=== PATIENT | female | born 1940 | race Caucasian/White ===

== ENCOUNTER 2020-11-01 11:56 | Outpatient (REF) | payer MEDICARE, SELFPAY | END 2020-11-01 11:57 | disposition home or self-care (01) | LOC: HO.LAB 11:56 | PROVIDERS: Visit Provider Internal Medicine | DX: Z20.828 Contact with and (suspected) exposure to other viral communicable diseases (principal) | CPT/HCPCS: C9803; U0003 ==

== ENCOUNTER 2022-01-03 14:00 | Emergency (ER) | payer MEDICARE, SELFPAY ==
--- NOTE | ~2022-01-03 | XR_ITS ---
EXAMINATION: XR HAND AND WRIST, RIGHT CLINICAL INFORMATION: Status post fall. Pain in the right hand and right wrist. COMPARISON: None TECHNIQUE: PA, lateral and oblique views including the right hand and right wrist are obtained with an ulnar deviation view of the right wrist. FINDINGS: There is diffuse osseous demineralization in the hand and wrist. There is no evidence of acute fracture or dislocation. Bones are in normal alignment. Degenerative changes are noted at the radiocarpal joint. Calcifications are noted in the expected location of the lunotriquetral and scapholunate ligaments. Mild degenerative changes in the interphalangeal joints. No definite focal erosion is seen. No evidence of radiopaque foreign body or soft tissue air. XR/XR hand wrist RT IMPRESSION: No radiographic evidence of acute fracture or dislocation in the right wrist and right hand at this time. Osteopenia.
[2022-01-03 14:07] VITALS: BP 137/53; PULSE 59; RESP 18; TEMP 36.8; O2SAT 98; BMI 31.1
--- NOTE | 2022-01-03 14:22 | ED_ITS ---
HPI - Extremity Problem General Chief complaint: Extremity Injury, Upper Stated complaint: fall hand inj Time Seen by Provider: 01/03/22 14:15 Source: patient and family Mode of arrival: wheelchair Limitations: altered mental status History of Present Illness HPI Narrative: 81-year-old female with a history of dementia here with reports of right hand and wrist pain after a fall yesterday. Per the daughter the patient was with her son when she slipped and fell catching herself with her right wrist. She initially did not complain of any pain but this morning when she woke up she was reporting some pain to the right hand and wrist as well as some swelling. There was no head strike or loss of consciousness. The patient is not on any anticoagulation. She is right handed Related Data Allergies Allergy/AdvReac Type Severity Reaction Status Date / Time Penicillins Allergy Unknown RASH Unverified 08/15/20 15:56 [PENICILLINS] Penicillian Allergy Unknown Uncoded 03/23/13 00:00 Review of Systems Verdana 4l Review of Systems: Yes Unobtainable due to mental status Verdana 4d Verdana 4l Neurologic: Verdana 4d Denies Abnormal speech present and Reports confusion Verdana 4l Psychiatric: Verdana 4d Verdana 4d Psychiatric: Verdana 4d Reports confusion [facility] Past Medical History Attestation statement: The following information was validated with the patient. Source: old records reviewed and nursing notes reviewed Social History Social History Advance Directives: Yes Advance Directives Information Provided: No Advance Directives on File: No Physical Exam Verdana 4l Vital Signs: Verdana 4d Verdana 4d Vital Signs: Verdana 4d Verdana 4Bd Last Vital Signs Verdana 4d Manager Physical New 4d Manager Physical New 4d Temp 98.2 F 01/03/22 14:07 Manager Physical New 4d Pulse 59 01/03/22 14:07 Manager Physical New 4d Resp 18 01/03/22 14:07 BP 137/53 L 01/03/22 14:07 Pulse Ox 98 01/03/22 14:07 BMI result Body Mass Index 31.1 Const: General: comfortable, alert and confusion Orientation/consciousness: confusion Limitations: altered mental status HENMT: Head: Yes normal to inspection Ears: hearing grossly normal bilaterally General nose exam: Normal external nose present Face and sinus: Yes normal facial exam Mouth: Normal oral and palatal mucosa present Throat: Yes posterior oropharynx normal Eyes: General: appearance normal, both eyes and all related structures Pupils: Equal, round and reactive pupils present Neck: Neck: Yes normal visual inspection Chest: Chest palpation & inspection: normal inspection of the chest Resp: Effort & Inspection: normal respiratory effort Auscultation: clear to auscultation bilaterally Cardio: Rate: regular rate Rhythm: regular rhythm Peripheral pulses: Peripheral pulses 2+ throughout GI: Inspection: Yes normal to inspection Palpation (GI): Soft to palpation and nontender Auscultation: normal bowel sounds Back/Spine/Pelvis: Thoracic/Lumbar Spine: thoracic and lumbar spine normal to inspection Skin: General skin exam: no rashes or lesions noted Neuro: General: no focal motor deficits, normal sensation to monofilament and confusion Cranial nerves: Yes Equal, round and reactive pupils present Cognition (Neuro): normal cognition Speech: No Abnormal speech present Gait exam (Neuro): Normal gait present Motor exam (neuro): 5/5 motor strength present throughout Extrem: Other: There is swelling, slight warmth and redness to the dorsal aspect of the right wrist with limited range of motion due to pain. Neurovascularly intact distally to this No snuffbox tenderness General: Yes normal to inspection Course Course Course Narrative: 81-year-old female with history of dementia here with right hand and wrist pain and swelling after a mechanical fall yesterday Will check x-rays 1615-x-ray showed no acute finding. Likely sprain. Will place and wrist spl int. Reviewed worrisome signs and symptoms of when to return to the emergency department. Comfortable discharge home. MDM - Extremity (Nontraumatic) Medical Records Attestation: I reviewed the patient's medical records. Lab Data Attestation: I reviewed the patient's lab results. Imaging Data hand/wrist xray: Attestation: I personally reviewed and interpreted this imaging study as follows: Radiologist's impression: FINDINGS: There is diffuse osseous demineralization in the hand and wrist. There is no evidence of acute fracture or dislocation. Bones are in normal alignment. Degenerative changes are noted at the radiocarpal joint. Calcifications are noted in the expected location of the lunotriquetral and scapholunate ligaments. Mild degenerative changes in the interphalangeal joints. No definite focal erosion is seen. No evidence of radiopaque foreign body or soft tissue air. XR/XR hand wrist RT IMPRESSION: No radiographic evidence of acute fracture or dislocation in the right wrist and right hand at this time. Osteopenia.? Procedures Procedure Narrative Procedure Narrative: wrist splint Discharge Plan Discharge Clinical Impression: Sprain and strain of wrist Patient Disposition: Home, Self-Care Instructions: Wrist Sprain (ED), Cold Compress or Soak (ED) Additional Instructions: Use splint for comfort Ice and elevate Follow-up with the doctor next week for persistent symptoms Tylenol for pain as needed Referrals: Nabeel Elizabeth MD [Primary Care Provider] - 1 week Interventions: ED Discharge Assessment Last Done: 01/03/22 15:59 Discharge Date/Time: 01/03/22 15:59 Print Language: Afghan
[2022-01-03] MEDS: Acetaminophen 325 MG TABLET 975 MG PO (14:42)
== END 2022-01-03 15:59 | disposition home or self-care (01) ==
PROVIDERS: Emergency Provider Emergency Medicine; PCP Internal Medicine
DX: S63.501A Unspecified sprain of right wrist, initial encounter (principal); X50.1XXA Overexertion from prolonged static or awkward postures, initial encounter; F03.90 Unspecified dementia, unspecified severity, without behavioral disturbance, psychotic disturbance, mood disturbance, and anxiety; Y93.89 Activity, other specified; Y92.039 Unspecified place in apartment as the place of occurrence of the external cause; Y99.9 Unspecified external cause status
CPT/HCPCS: 73110; 73130; 99283; 99284

== ENCOUNTER 2023-07-05 14:50 | Outpatient (REF) | payer MEDICARE, SELFPAY ==
[2023-07-05 17:05] LABS: Alanine Aminotransferase 15 U/L (0-31); Albumin Level 3.9 g/dL (3.5-5.0); Alkaline Phosphatase 52 U/L (39-117); Aspartate Amino Transferase 17 U/L (5-31); Bilirubin Direct 0.1 mg/dL (0.0-0.5); Bilirubin Total 0.3 mg/dL (0.0-1.0); Total Protein 6.7 g/dL (6.5-8.0)
[2023-07-05 17:11] LABS: Anion Gap 11 (12-20); Blood Urea Nitrogen 13 mg/dL (9-16); Calcium 9.6 mg/dL (8.4-10.2); Carbon Dioxide 30 mmol/L (22-29); Chloride 99 mmol/L (96-108); Cholesterol 137 mg/dL; Estimated Glomerular Filt Rate > 60; Glucose Random 123 mg/dL (60-115); HDL Cholesterol 52 mg/dL; LDL Cholesterol Calculated 56 mg/dl; Potassium 4.1 mmol/L (3.3-5.1); Sodium 136 mmol/L (135-145); Triglycerides 147 mg/dL
[2023-07-05 17:22] LABS: TSH reflex Free T4 2.75 uIU/mL (0.32-4.0)
== END 2023-07-05 14:51 | disposition home or self-care (01) ==
LOC: HO.HHCL 14:50
PROVIDERS: Visit Provider Internal Medicine
DX: Z00.00 Encounter for general adult medical examination without abnormal findings (principal); E11.9 Type 2 diabetes mellitus without complications
CPT/HCPCS: 36415; 80048; 80061; 80076; 82043; 84443

== ENCOUNTER 2024-07-18 13:46 | Outpatient (REF) | payer MEDICARE, SELFPAY ==
--- NOTE | ~2024-07-18 | MM_ITS ---
EXAMINATION: MM SCREENING DIGITAL BREAST TOMOSYNTHESIS, BILATERAL CLINICAL INFORMATION: Screening. Asymptomatic. COMPARISON: Mammography: This study is compared with prior exams dating back to 2017. TECHNIQUE: Digital breast tomosynthesis is performed in both the craniocaudal and mediolateral oblique views along with computer-aided detection (CAD). Synthesized 2D images are generated from the tomosynthesis. FINDINGS: There are scattered areas of fibroglandular density (ACR BI-RADS breast composition Category b). There are no significant masses, abnormal calcifications, or other abnormalities. There are bilateral, benign secretory calcifications. MM/MM tomosynthesis screening BI IMPRESSION: No mammographic evidence of malignancy. ASSESSMENT: BI-RADS BI-RADS 2 - Benign Findings RECOMMENDATION: Routine annual mammography screening. 1 year F/U This examination should not preclude the clinical evaluation of a suspicious palpable abnormality. This patient's information was entered into a reminder system with a target due date for their next mammogram. Electronically signed by: Cristy Peralta MD 08/10/2024 04:52 PM EDT
== END 2024-07-18 13:47 | disposition home or self-care (01) ==
LOC: HO.MAMMO 13:46
PROVIDERS: PCP Internal Medicine; Visit Provider Internal Medicine
DX: Z12.31 Encounter for screening mammogram for malignant neoplasm of breast (principal)
CPT/HCPCS: 77063; 77067

== ENCOUNTER → 2024-07-18 14:00 | Outpatient (BNV) | payer MEDICARE, SELFPAY | PROVIDERS: PCP Internal Medicine; Visit Provider Radiology Diagnostic Radiology | DX: Z12.31 Encounter for screening mammogram for malignant neoplasm of breast (principal) | CPT/HCPCS: 77063; 77067 ==

== ENCOUNTER 2024-08-30 11:03 | Outpatient (REF) | payer MEDICARE, SELFPAY ==
[2024-08-30 13:46] LABS: Appearance Urine Cloudy; Color Urine Yellow; Glucose Urine UA Negative (Negative); Leukocyte Esterase Urine Small (1+) (Negative); Nitrite Urine Negative (Negative); PH 6.5 (5.0-9.0); UMIC TRIGGER UACC YES; Urine Blood Negative (Negative); Urine Ketones Negative (Negative); Urine Protein Negative (Neg-Trace)
[2024-08-30 14:23] LABS: Bacteria Urine 3+ (None Seen); Hyaline Casts Urine 0-2 /LPF (0-2); RBC Urine 0-2 /HPF (0-2); UACC Culture Trigger YES
[2024-08-30 14:27] LABS: Alanine Aminotransferase 14 U/L (0-31); Albumin Level 4.1 g/dL (3.5-5.0); Alkaline Phosphatase 51 U/L (39-117); Anion Gap 15 (12-20); Aspartate Amino Transferase 24 U/L (5-31); Bilirubin Total 0.4 mg/dL (0.0-1.0); Blood Urea Nitrogen 10 mg/dL (9-16); Calcium 9.3 mg/dL (8.4-10.2); Carbon Dioxide 23 mmol/L (22-29); Chloride 102 mmol/L (96-108); Cholesterol 124 mg/dL (<200); Estimated Glomerular Filt Rate 55; Glucose Random 141 mg/dL (60-115); HDL Cholesterol 43 mg/dL (>40); LDL Cholesterol Calculated 47 mg/dL (<100); Sodium 136 mmol/L (135-145); Total Protein 7.1 g/dL (6.5-8.0); Triglycerides 172 mg/dL (<150)
== END 2024-08-30 11:04 | disposition home or self-care (01) ==
LOC: HO.HHCL 11:03
PROVIDERS: Visit Provider Internal Medicine
DX: E11.9 Type 2 diabetes mellitus without complications (principal); M54.50 Low back pain, unspecified; G89.29 Other chronic pain; R82.90 Unspecified abnormal findings in urine
CPT/HCPCS: 36415; 80053; 80061; 81001; 87086

== ENCOUNTER 2025-04-17 13:12 | Outpatient (REF) | payer OTHER, SELFPAY ==
--- NOTE | ~2025-04-17 | MM_ITS ---
EXAMINATION: DXA BONE DENSITY AXIAL HISTORY: osteopenia TECHNIQUE: Cardica Dual energy absorptiometry (DEXA) of the lumbar spine, total left hip, and femoral neck was performed. COMPARISON: Comparison is made with the prior examination dated 01/29/2015. FINDINGS: The bone mineral density of the lumbar spine is 1.040 with a T-score of -1.0, and a Z-score of 1.1. This is indicative of normal bone mineral density. This represents a BMD change of 2.2% compared to the prior exam. This is not statistically significant. The bone mineral density of the left total hip is 0.912 with a T-score of -0.8, and a Z-score of 1.7. This is indicative of normal bone mineral density. This represents a BMD change of -6.8% compared to the prior exam. This is statistically significant. The bone mineral density of the left femoral neck is 0.939 with a T-score of -0.7, and a Z-score of 1.9. This is indicative of normal bone mineral density. This represents a BMD change of -5.8% compared to the prior exam. FRACTURE RISK: The FRAX index suggests a ten year probability of major osteoporotic fracture of 6.3%, and of hip fracture 1.4%. MM/XR DEXA axial skeleton IMPRESSION: Based on bone mineral density, and according to World Health Organization (WHO) criteria, the diagnosis is consistent with normal bone mineral density. All bone density values are in grams per centimeter squared (g/cm2). Statistically, 68% of repeat scans fall within 1 SD (+/- 0.010 g/cm2 for AP spine L1-L4) and 1 SD (+/- 0.012 g/cm2 for femur total) FRAX is a trademark of the [employer] Met[employer], a World Health Organization (WHO) Collaborating Center. Electronically signed by: Damon Rome MD 04/17/2025 03:16 PM EDT
--- OUTSIDE RECORDS SUMMARY | 2025-04-17 14:17 | XMS_ITS | Clinical Summary ---
Author Organization [employer] Address [address] [place] [address] Care Team Providers Care Lines Tender Name Role Phone Nabeel Aldana MD Primary Care Provide r Santi Arellano DPM Unavailable [phone] Allergies Active Allergy Reactions Criticality Noted Date Comments Penicillins Other reaction(s): unspecified, unspecified Medications memantine (Namenda) 10 MG tablet take 1 tablet by oral route twice daily in the morning and at bedtime. 2 Active Emollient (CeraVe Moisturizing) cream use once daily 2 Active donepezil (Aricept) 10 MG tablet take 1 tablet by oral route every day at bedtime 2 Active primidone (Mysoline) 50 MG tablet take 0.5 tablet (25 mg) by mouth twice daily in the morning and at bedtime 1 Active haloperidol (Haldol) 0.5 MG tablet Take 1 tablet by mouth every 12 (twelve) hours. Active olopatadine (Patanol) 0.1 % ophthalmic solution PLACE 1 DROP INTO THE AFFECTED EYE(S) EVERY 6 TO 8 HOURS, TWICE DAILY, FOR ALLERGIES 5 mL 1 3 Active fluticasone (Flonase) 50 MCG/ACT nasal spray INHALE 1 SPRAY IN EACH NOSTRIL ONCE DAILY 16 g 5 4 Active Diclofenac Sodium 1 % gelIndications:Ch ronic midline low back pain without sciatica Apply to affected joint twice daily PRN 50 g 1 5 Active amLODIPine (Norvasc) 2.5 MG tabletIndications :Type 2 diabetes mellitus without complication, unspecified whether senior living insulin use ([facility]) TAKE 1 TABLET BY MOUTH EVERY MORNING 90 tablet 1 5 Active atenolol (Tenormin) 25 MG tablet TAKE 1/2 TABLET BY MOUTH EVERY MORNING 45 tablet 5 Active atorvastatin (Lipitor) 40 MG tabletIndications :Type 2 diabetes mellitus without complication, unspecified whether assistant terminal manager insulin use ([facility]) TAKE 1 TABLET BY MOUTH AT BEDTIME 90 tablet 1 5 Active cetirizine (ZyrTEC) 10 MG tabletIndications :Essential hypertension TAKE 1 TABLET BY MOUTH EVERY MORNING 90 tablet 1 5 Active gabapentin (Neurontin) 100 MG capsuleIndication s:Chronic midline low back pain without sciatica TAKE 1 CAPSULE BY MOUTH AT BEDTIME 30 capsule 5 5 Active hydroCHLOROthiazi de 12.5 MG tabletIndications :Type 2 diabetes mellitus without complication, unspecified whether senior living insulin use ([facility]) TAKE 1 TABLET BY MOUTH EVERY MORNING 90 tablet 1 5 Active losartan (Cozaar) 100 MG tabletIndications :Type 2 diabetes mellitus without complication, unspecified whether assistant terminal manager insulin use ([facility]) TAKE 1 TABLET BY MOUTH EVERY MORNING 90 tablet 5 Active metFORMIN XR (Glucophage-XR) 500 MG 24 hr tabletIndications :Type 2 diabetes mellitus without complication, unspecified whether assistant terminal manager insulin use ([facility]) TAKE 1 TABLET BY MOUTH EVERY MORNING WITH BREAKFAST 90 tablet 5 Active cholecalciferol (Vitamin D-3) 125 MCG (5000 UT) tabletIndications :Low vitamin D level TAKE 1 TABLET BY MOUTH EVERY MORNING 90 tablet 5 Active Oyster Shell Calcium 500 MG tabletIndications :Chronic midline low back pain without sciatica TAKE 1 TABLET BY MOUTH EVERY MORNING 90 tablet 1 5 Active acetaminophen (Tylenol 8 Hour) 650 MG ER tabletIndications :Chronic midline low back pain without sciatica Take 1 tablet (650 mg) by mouth every 8 (eight) hours if needed for mild pain. Do not crush, chew, or split. 30 tablet 5 04/02/20 25 Active Problems Problem Noted Date Diagnosed Date Poor appetite 02/01/2025 Assessment & Plan (02/01/2025 12:04 PM EST): Pt recommended to try Glucerna TID Preventative health care 08/29/2024 Assessment & Plan (08/29/2024 3:37 PM EDT): Mammogram: NL 06/17/2023 Normal Pap Smear: NL: 07/13/2006 Given age no need to continue Colonoscopy: 01/04/2014 Dr. Mejía 10 year f/u 2023, Discussed today with her HCP her daughter who will discuss with her brother and let me know. I explained to her that we usually stopped screening for colorectal CA at age 84 Dexa scan: 01/29/2015 NL, will repeat Skin lesion of face 08/29/2024 Assessment & Plan (08/29/2024 10:29 AM EDT): Pt treated for this by Dr Zhou, lesion on her left cheek growing, would like to be re-evaluated again Moderate dementia with agitation 10/30/2022 Assessment & Plan (02/01/2025 11:48 AM EST): Pt here for a follow up Remains stable per family member Pt is being followed by Neurology, last note on record 05/2023 She is on: Namenda 10 mg po BID and Aricept 10 mg po daily Haldol 0.5 1 tab q 12 hrs. And Primidone 50 mg po BID prescribed by Neurologist She lives with her son She will continue following with Neurology Ct of brain was negative, EEG was negative She has a [employer]TA[employer] at home. f/u 3 months Assessment & Plan (08/29/2024 10:06 AM EDT): Pt here for a follow up Remains stable per family member Pt is being followed by Neurology, last note on record 05/2023 She is on: Namenda 10 mg po BID and Aricept 10 mg po daily Haldol 0.5 1 tab q 12 hrs. And Primidone 50 mg po BID prescribed by Neurologist She lives with her son She will continue following with Neurology Ct of brain was negative, EEG was negative She has a [employer] at home. f/u 3 months Assessment & Plan (07/08/2023 3:35 PM EDT): Pt stable per daughter Pt is being followed by Neurology, last seen 05/2023 She is on: Namenda 10 mg po BID and Aricept 10 mg po daily Haldol 0.5 1 tab q 12 hrs. And Primidone 50 mg po BID prescribed by Neurologist She now lives with her son She will continue following with Neurology Ct of brain was negative, EEG was negative She has a [employer] at home. 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 patient advised to adhere to a low sodium diet, encouraged about medication compliance, counseled about weight loss. Assessment & Plan (08/29/2024 10:07 AM EDT): Pt is here for a follow up BP controlled She is on a regimen of: Atenolol 12.5 mg po daily (lowered due to bradycardia) , losartan/Hctz 100/12.5 mg po daily and Norvasc 2.5 mg po daily She is off Lasix Most recent electrolytes, Bun and Creatinine done on: 07/05/2023 were wnl. Will repeat patient advised to adhere to a low sodium diet, encouraged about medication compliance, counseled about weight loss. Assessment & Plan (07/08/2023 3:23 PM EDT): Pt is here for a follow up BP controlled She is on a regimen of: Atenolol 12.5 mg po daily (lowered due to bradycardia) , losartan/Hctz 100/12.5 mg po daily and Norvasc 2.5 mg po daily She is off Lasix Most recent electrolytes, Bun and Creatinine done on: 04/06/2022 were wnl. Will repeat patient advised to adhere to a low sodium diet, encouraged about medication compliance, counseled about weight loss. Assessment & Plan (04/13/2023 12:48 PM EDT): Televisit BP controlled She is on a regimen of: Atenolol 12.55 mg po daily (lowered due to bradycardia) , losartan/Hctz 100/12.5 mg po daily and Norvasc 2.5 mg po daily She is off Lasix Most recent electrolytes, Bun and Creatinine done on: 04/06/2022 were wnl. Will repeat patient advised to adhere to a low sodium diet, encouraged about medication compliance, counseled about weight loss. Non-rheumatic tricuspid valve insufficiency 08/30 Tricuspid valve regurgitation 06/18/2015 Assessment & Plan (08/29/2024 10:08 AM EDT): last ECHO from [facility] done on 09/09/2016 showed moderate to severe Tricuspid regurgitation unchanged from previous. Assessment & Plan (07/08/2023 3:36 PM EDT): Most recent ECHO from [facility] done on 09/09/2016 showed moderate to severe Tricuspid regurgitation unchanged from previous. Chronic low back pain 09/19/2012 Assessment & Plan (02/01/2025 12:02 PM EST): Pt tamika Has a Hx of chronic low back pain, treated in the past by a local doper operator Dr Wren with epidural injections with good results.. MRI done at [facility] 10/27/2009 showed a complex disc bulge at the level of L4-L5 which I suspected was causing her symptoms. In the past she was seen at [facility] and last visit she told me she wanted to go back for consideration of epidural injections. She was seen on 12/05/2012 and given an epidural injections with excellent results. She had been under the care of Dr. Marquez who had prescribed Tramadol and gabapentin. Pt no longer sees Dr. Marquez. No longer taking Tramadol since 2022 per [facility] Plan; Start Tylenol arthritis and Diclofenac Last visit we requested a positioning bed Assessment & Plan (08/29/2024 10:09 AM EDT): Pt tamika Has a Hx of chronic low back pain, treated in the past by a local doper operator Dr Wren with epidural injections with good results.. MRI done at [facility] 10/27/2009 showed a complex disc bulge at the level of L4-L5 which I suspected was causing her symptoms. In the past she was seen at [facility] and last visit she told me she wanted to go back for consideration of epidural injections. She was seen on 12/05/2012 and given an epidural injections with excellent results. she continues on Tramadol and gabapentin. Last visit we requested a positioning bed Assessment & Plan (07/08/2023 3:38 PM EDT): Pt with chronic low back pain, treated in the past by a local doper operator Dr Wren with epidural injections with good results.. MRI done at [facility] 10/27/2009 showed a complex disc bulge at the level of L4-L5 which I suspected was causing her symptoms. In the past she was seen at [facility] and last visit she told me she wanted to go back for consideration of epidural injections. She was seen on 12/05/2012 and given an epidural injections with excellent results. she continues on Tramadol and gabapentin. 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 Foot check risk of zero Pt is on ASA Pt advised to: adhere to diabetic diet check your blood sugars regularly check your feet on a daily basis. 4 month follow up Assessment & Plan (08/29/2024 10:09 AM EDT): Patient is here for a routine follow up DM controlled She is on a regimen of: Metformin 500 mg po QD Hgb A1c 08/29/2024 was 6.8 Eye exam was last done by the Dr Niño 12/31/2015 Microalbumin checked on: 01/14/2021 was: 0.4 Pt is on ARB. Foot check risk of zero Pt is on ASA Pt advised to: adhere to diabetic diet check your blood sugars regularly check your feet on a daily basis. 4 month follow up Assessment & Plan (07/08/2023 3:25 PM EDT): Patient is here for a routine follow up DM controlled She is on a regimen of: Metformin 500 mg po QD Hgb A1c 07/08/2023 was 6.3 Eye exam was last done by the Dr Niño 12/31/2015 Microalbumin checked on: 01/14/2021 was: 0.4 Pt is on ARB. Foot check risk of zero Pt is on ASA Pt advised to: adhere to diabetic diet check your blood sugars regularly check your feet on a daily basis. 4 month follow up Assessment & Plan (04/13/2023 12:50 PM EDT): Televisit DM controlled per son's report over the phone She is on a regimen of: Metformin 500 mg po QD Hgb A1c 09/01/2022 was 6.2. Will repeat Eye exam was last done by the Dr Niño 12/31/2015 Microalbumin checked on: 01/14/2021 was: 0.4 Pt is on ARB. Foot check risk of zero Pt is on ASA Pt advised to: adhere to diabetic diet check your blood sugars regularly check your feet on a daily basis. 3 month follow up in person Osteoarthritis 11/29/1959 Resolved Problems Problem Noted Date Diagnosed Date Resolved Date Cataract associated with typ e 2 diabetes mellitus 07/28/2018 11/03/2024 Encounters Date Type Department Care Team Description 03/09/2025 Telephone [facility] [address] [place] [address] Nabeel Aldana MD Durable Medical Equipment 03/01/2025 Refill [facility] [address] [place] [address] Nabeel Aldana MD Chronic midline low back pain without sciatica 02/07/2025 Telephone [facility] [address] [place], [place] [phone] Nabeel Aldana MD DME CCA 02/04/2025 Refill [facility] [address] [place], [place] [phone] Nabeel Aldana MD Type 2 diabetes mellitus without complication, unspecified whether assistant terminal manager insulin use (CMS/HCC); Essential hypertension; Chronic midline low back pain without sciatica; Low vitamin D level 02/01/2025 11:30 AM EST Office Visit [facility] [address] [place], [place] [phone] Nabeel Aldana MD Essential hypertension (Primary Dx); Type 2 diabetes mellitus without complication, without long-term current use of insulin (CMS/HCC); Moderate dementia with agitation, unspecified dementia type (CMS/HCC); Chronic midline low back pain without sciatica; Poor appetite 02/01/2025 Travel 01/18/2025 Telephone [facility] [address] [place], [place] [phone] Nabeel Aldana MD Chart Prep from Last 3 Months Immunizations Immunization Administration Dates Next Due Influenza High-dose Quadriva lent Preservative Free 09/01/2022,09/02/2021,08/27/2020 Influenza injectable quadriv alent IIV4 with preservative 09/15/2016 Influenza injectable quadriv alent preservative free 09/02/2015 Influenza, High Dose Seasona l, Preservative Free 08/29/2024,10/11/2018,11/18/2016 Influenza, IIV3, injectable 08/09/2014,1 ,08/07/2010,12/09 Influenza, Split (incl. anabell fied surface antigen) 08/28/2013,09/19/2012 Influenza, trivalent, adjuvanted 08/10/2019 Pfizer Covid-19 Vaccine 12+ 08/29/2024,0 08/28/2021,01/04/2021,12/14 Pfizer Covid-19 Vaccine 12+ Bivalent 09/01/2022 Pneumococcal Conjugate PCV 13 11/26/2015 Pneumococcal Conjugate PCV 7 04/03/2011 Pneumococcal Polysaccharide PPSV23 01/19/2014 TD (adult), 2 Lf tetanus tox oid, preservative free, adsorbed 01/08/2015,10/04/1997 Tdap 09/01/2022 Zoster, live 01/19/2014 Social History Tobacco Use Types Packs/Day Years Used Date Smoking Tobacco: Never Passive Smoke Exposure: Never Smokeless Tobacco: Never Tobacco Cessation:Counseling Given: Not Answered Depression Answer Date Recorded Patient Health Questionnaire-9 Score 3 08/29/2024 Patient Health Questionnaire-9 Score 3 08/29/2024 Last PHQ-9: Questionnaire Data Not on file 1 Housing Stability Answer Date Recorded What is your housing situation today? I have anishaalexis rueda 09/21/[address] you li ve. Do you have problems with any of the following? None of the above 09/21/2023 Food Insecurity Answer Date Recorded Within the past 12 months, y ou worried that your food would run out before you got money to buy more: Never True 09/21/2023 Within the past 12 months,th e food you bought just didn't last and you didn't have enough money to get more: Never True Transportation Answer Date Recorded In the past 12 months, has l ack of transportation kept you from medical appts, meetings, work or from getting things needed for daily living? No 09/21/2023 Utilities Answer Date Recorded In the past 12 months, has t he electric, gas, oil or water company threatened to shut off services in your home? No 09/21/2023 Depression Answer Date Recorded Patient Health Questionnaire-2 Score 3 08/29/2024 Internet Access Answer Date Recorded Internet Access Q1 Yes 07/28/2024 Internet Access Q2 Not on file 07/28/2024 Comments Unknown Sex and Gender Information Value Date Recorded Sex Assigned at Female 09/28/2022 10:14 AM EDT Legal Sex Female 10:14 AM EDT Gender Identity Female 09/28/2022 10:14 AM EDT Sexual Orientation Straight 09/28/2022 10 :14 AM EDT Last Filed Vital Signs Vital Sign Reading Time Taken Comments Blood Pressure 124/64 02/01/2025 11:46 AM EST Pulse 65 02/01/2025 11:46 AM EST Temperature 36.1 ??C (96.9 ??F) 02/01/2025 11:[address] Respiratory Rate 20 02/01/2025 11:46 AM EST Oxygen Saturation 95% 02/01/2025 11:46 AM EST Inhaled Oxygen Concentration - - Weight 57.2 kg (126 lb 3.2 oz) 02/01/2025 11:46 AM EST Height 149.9 cm (4' 11 ) 02/01/2025 11:46 AM EST Body Mass Index 25.49 02/01/2025 11:46 AM EST Plan of Treatment Upcoming Encounters Date Type Department Care Team (Late st Contact Info) Description 05/08/2025 3:00 PM EDT Office Visit [facility] [address] [place] [address] Nabeel Aldana MD [address] [place] [address] Health Maintenance Due Date Last Done Comments Derm Melanoma Skin Check 1940 Diabetes: Foot Exam 1949 Dental X-Ray: Bitewings 02/07/2011 02/06/2010 Zoster Vaccines (2 of 3) 03/16/2014 01/19/2014 RSV Patients and Patients Aged 60 years or older (1 - 1-dose 75+ series) 2014 Dental Prophylaxis 04/04/2016 10/04/2015, 0 04/02/2015, 02/12/2014, Additional history exists Diabetes: Urine Protein Screening 04/06/2023 04/06/2022, 09/17/2020 Dental Oral Exam 01/19/2025 07/18/2024, , 11/18/2017, Additional history exists COVID-19 Vaccine ( season) 2025 08/29/2024, 09/01/2022, 08/28/2021, Additional history exists SDOH Screening 06/02/2025 06/02/2024 Mammogram 07/18/2025 07/18/2024, 06/17/2023 Diabetes: Hemoglobin A1C 08/04/2025 025, 08/29/2024, 07/08/2023, Additional history exists Depression Screening 08/29/2025 08/29/2024, 08/29/20 24 Lipid Panel 08/30/2025 08/30/2024, 08/0 05/2023, 04/06/2022 Alcohol/Substance Use Screening 02/01/2026 02/01/2025 Tobacco Screening 02/01/2026 02/01/2025 Eye Exam 11/03/2026 11/03/2024, 12/0 04/2024, 11/03/2024, Additional history exists Dental X-Ray: Full Mouth 07/19/2027 024, 11/06/2015, 02/06/2010 DTaP/Tdap/Td Vaccines (2 - Td or Tdap) 09/01/2032 09/01/2022, 01/08/2015, 10/04/1997 Pneumococcal Vaccine: 50+ Years Completed 11/26/2015, 01/19/2014, 04/03/2011 Influenza Vaccine Completed 08/29/2024, , 09/02/2021, Additional history exists HIB Vaccines Aged Out No longer eligi ble based on patient's age to complete this topic HPV Vaccines Aged Out No longer eligi ble based on patient's age to complete this topic Hepatitis A Vaccines Aged Out No long er eligible based on patient's age to complete this topic Hepatitis B Vaccines Aged Out No long er eligible based on patient's age to complete this topic IPV Vaccines Aged Out No longer eligi ble based on patient's age to complete this topic Meningococcal B Vaccine Aged Out No l onger eligible based on patient's age to complete this topic Meningococcal Vaccine Aged Out No liz harjinder eligible based on patient's age to complete this topic RSV under 20 months Aged Out No longe r eligible based on patient's age to complete this topic Rotavirus Vaccines Aged Out No longer eligible based on patient's age to complete this topic Procedures Procedure Name Priority Date/Time Associated Diagnosis Comments POCT GLYCATED HEMOGLOBIN, TOTAL Routine 02/01/2025 11:56 AM EST Type 2 diabetes mellitus without complication, without long-term current use of insulin (CMS/[facility]) POCT GLUCOSE Routine 02/01/2025 11:56 AM EST Type 2 diabetes mellitus without complication, without long-term current use of insulin (CMS/[facility]) LIPID PANEL, STANDARD Routine 08/30/2024 11:09 AM EDT Type 2 diabetes mellitus without complication, without long-term current use of insulin (CMS/[facility]) BI MAMMOGRAM SCREENING TOMOSYNTHESIS BILATERAL Routine 07/18/2024 1:55 PM EDT PANORAMIC RADIOGRAPHIC IMAGE Routine 07/18/2024 11:30 AM EDT PERIODIC ORAL EVALUATION - ESTABLISHED PATIENT Routine 07/18/2024 11:30 AM EDT ALBUMIN, RANDOM URINE W/CREATININE Routine 04/06/2022 10:27 AM EDT PROPHYLAXIS - ADULT Routine 10/04/2015 1 2:00 AM EST INTRAORAL - COMPLETE SERIES OF RADIOGRAPHIC IMAGES Routine 02/06/2010 12:00 AM EST from Last 3 Months or Most Recently Relevant to Health Maintenance Results * (ABNORMAL) POCT HGB A1C (02/01/2025 11:56 AM EST) Hemoglobin A1C 6.7(A) 4.0 - 6.0 % QC Media Lot # [id number] Lot# Expiration Date Blood 02/01/2025 11:5 6 AM EST us Nabeel Coombs MD POINT OF CARE TEST EN TER/EDIT ORDERABLES Final Result * POCT Glucose (02/01/2025 11:56 AM EST) Glucose Blood, POC 182 60 - 200 mg/dL QC Media Lot # [id number] Lot# Expiration Date [id number] Blood Capillary blood specimen / Unknown 02/01/2025 11:56 AM EST Nabeel Coombs MD POINT OF CARE TEST EN TER/EDIT ORDERABLES Final Result * (ABNORMAL) Lipid Panel, Standard (08/30/2024 11:09 AM EDT) Triglycerides 172(H) <150 mg/dL [facility] Comment:Desirable Triglyceri de: less than 150 mg/dLBorderline High Triglyceride 150-199 mg/dLHigh Triglyceride: 200-499 mg/dLVery High Triglyceride: greater than or equal to 5OO mg/dL Cholesterol 124 <200 mg/dL [facility] Comment:Desirable Cholestero l: less than 200 mg/dLBorderline High Cholesterol: 200-239 mg/dLHigh Cholesterol: greater than 239 mg/dL LDL Cholesterol Calculated 47 <100 mg/dL [facility] Comment:Desirable LDL: less than 100 mg/dLNear Optimal/Above Optimal LDL: 110- 129 mg/dLBorderline High LDL: 130-159 mg/dLHigh LDL: 160-189 mg/dLVery High LDL: greater than or equal to 190 mg/dL HDL Cholesterol 43 >40 mg/dL [facility] Comment:Desirable HDL: great er than 40 mg/dL Note: This HDL assay may give artificially low results in patients with liver disease. Blood Venous blood specimen / Unknown 08/30/2024 11:09 AM EDT 08/30/2024 1:43 PM EDT Nabeel Coombs MD LAB BLOOD ORDERABLES Final Result [facility] [address] [place] [phone] * BI Mammogram Screening Tomosynthesis Bilateral (07/18/2024 1:55 PM EDT) Anatomical Region Laterality Modality Breast Bilateral Mammography 07/18/2024 1:55 PM EDT Narrative 08/10/2024 4:55 PM EDT ? [facility] ? [address] ?[place], [place] [address] ? Mammography Report ? Signed ? Patient: Mirian Coulter ?MR#: [id number] ? : 1940 ?Acct:[id number] ? Age/Sex: 84 / F ?ADM Date: 07/18/24 ? Loc: HO.MAMMO ? Attending Dr: Nabeel Elizabeth MD ? Ordering Physician: Nabeel Elizabeth MD ?Resu ?? lts: 2Benign Findings ? Date of Service: 07/18/24 ?Follow Up: 1 Year From Orig ?? inal Mammogram ? Procedure(s): MM tomosynthesis screening BI ?? Accession Number(s): [id number] ? cc: Nabeel Elizabeth MD ? EXAMINATION: ?? MM SCREENING DIGITAL BREAST TOMOSYNTHESIS, BILATERAL ? CLINICAL INFORMATION: ? Screening. Asymptomatic. ? COMPARISON: ?? Mammography: This study is compared with prior exams dating back to ? 2017. ? TECHNIQUE: ?? Digital breast tomosynthesis is performed in both the craniocaudal and ?? mediolateral oblique views along with computer-aided detection (CAD). ? Synthesized 2D images are generated from the tomosynthesis. ? FINDINGS: ?? There are scattered areas of fibroglandular density (ACR BI-RADS breast ?? composition Category b). ? There are no significant masses, abnormal calcifications, or other ?? abnormalities. ?? There are bilateral, benign secretory calcifications. ? MM/MM tomosynthesis screening BI ?? IMPRESSION: ?? No mammographic evidence of malignancy. ? ASSESSMENT: ? BI-RADS BI-RADS 2 - Benign Findings ? RECOMMENDATION: ?? Routine annual mammography screening. ? 1 year F/U ? This examination should not preclude the clinical evaluation of a ?? suspicious palpable abnormality. ? This patient's information was entered into a reminder system with a ?? target due date for their next mammogram. ? Electronically signed by: ??Cristy Peralta MD ??08/10/2024 04:52 PM EDT RP ? Dictated By: ?Cristy Peralta MD ? Signed By: ?<Electronically signed by Cristy Moskos, MD in OV> ? 08/10/24 1652 ? DD/ 1355 ? TD/TT: 07/18/24 1410 ? Biometrics Analyst: ? Procedure Note Jerome, Delta - 08/10/2024 [facility] [address] [place] [address] [place] [address] Mammography Report Signed Patient: Mirian Coulter MR#: [id number] : 9Acct:[id number] Age/Sex: 84 / FADM Date: 07/18/24 Loc: [facility] Attending Dr: Nabeel Elizabeth MD Ordering Physician: Nabeel Elizabeth MDResu lts: 2Benign Findings Date of Service: 07/18/24Follow Up: 1 Year From Orig inal Mammogram Procedure(s): MM tomosynthesis screening BI Accession Number(s): [id number] cc: Nabeel Elizabeth MD EXAMINATION: MM SCREENING DIGITAL BREAST TOMOSYNTHESIS, BILATERAL CLINICAL INFORMATION: Screening. Asymptomatic. COMPARISON: Mammography: This study is compared with prior exams dating back to 2017. TECHNIQUE: Digital breast tomosynthesis is performed in both the craniocaudal and mediolateral oblique views along with computer-aided detection (CAD). Synthesized 2D images are generated from the tomosynthesis. FINDINGS: There are scattered areas of fibroglandular density (ACR BI-RADS breast composition Category b). There are no significant masses, abnormal calcifications, or other abnormalities. There are bilateral, benign secretory calcifications. MM/MM tomosynthesis screening BI IMPRESSION: No mammographic evidence of malignancy. ASSESSMENT: BI-RADS BI-RADS 2 - Benign Findings RECOMMENDATION: Routine annual mammography screening. 1 year F/U This examination should not preclude the clinical evaluation of a suspicious palpable abnormality. This patient's information was entered into a reminder system with a target due date for their next mammogram. Electronically signed by: Cristy Peralta MD 08/10/2024 04:52 PM EDT RP Dictated By: Cristy Peralta MD Signed By: <Electronically signed by Cristy Peralta MD in OV> 08/10/24 1652 DD/ 1355 TD/TT: 07/18/24 1410 Biometrics Analyst: us Nabeel Coombs MD IMG BI PROCEDURES Fin al Result * ALBUMIN, RANDOM URINE W/CREATININE (04/06/2022 10:27 AM EDT) Microalbumin Urine 1.6 See Note: mg/dL [facility] Comment: Reference Range: ?? Reference Range Not established Microalb/Creat Ratio 9 <30 mcg/mg creat [facility] Comment: ?? The ADA defines abnormalities in albumin excretion as follows: ?? Albuminuria Category ?Result (mcg/mg creatinine) ?? Normal to Mildly increased ?? <30 Moderately increased ? 30-299 ?? Severely increased ? > OR = 300 ?? The ADA recommends that at least two of three specimens collected within a 3-6 month period be abnormal before considering a patient to be within a diagnostic category. 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
--- OUTSIDE RECORDS SUMMARY | 2025-04-17 14:17 | XMS_ITS | Encounter Summary ---
Author Organization [email or web address] Address [address] [facility] 7t [place] [address] Care Team Providers Care Racking Machine Operator Name Role Phone Nabeel Aldana MD Primary Care Provide r Santi Arellano DPM Unavailable [phone] Reason for Visit * Reason Onset Date Comments Durable Medical Equipment 07/24/2024 Encounter Details Date Type Department Care Team (Late st Contact Info) Description 07/24/2024 Telephone [facility] MEDICINE [address] [place], [place] [phone] Nabeel Aldana MD [address] [place], [place] [phone] Durable Medical Equipment Social History Tobacco Use Types Packs/Day Years Used Date Smoking Tobacco: Never Passive Smoke Exposure: Never Smokeless Tobacco: Never Depression Answer Date Recorded Patient Health Questionnaire-9 Score 0 07/08/2023 Housing Stability Answer Date Recorded What is your housing situation today? I have anisha marybeth 09/21/[address] you li [...] Answer Date Recorded Patient Health Questionnaire-2 Score 0 07/08/2023 Internet Access Answer Date Recorded Internet Access Q1 Yes 07/28/2024 Internet Access Q2 Not on file 07/28/2024 Comments Unknown Sex and Gender Information Value Date Recorded Sex Assigned at Female 09/28/2022 10:14 AM EDT Legal Sex Female 10:14 AM EDT Gender Identity Female 09/28/2022 10:14 AM EDT Sexual Orientation Straight 09/28/2022 10 :14 AM EDT documented as of this encounter Miscellaneous Notes * Telephone Encounter - Salvatore Pantoja - 07/24/2024 3:20 PM EDT TC from Monisha with [employer] states received form for incontinents supplies but form was not completed. Needs this form redone . [employer] will be re faxing form for completion with notes of what was missing . Please call [employer] can speak with any one at [phone] Reference # [id number] documented in this encounter Plan of Treatment Upcoming Encounters Date Type Department Care Team ([facility] st Contact Info) Description 05/08/2025 3:00 PM EDT Office Visit [facility] MEDICINE [address] [place] [address] Nabeel Aldana MD [address] [place] [address] documented as of this encounter Visit Diagnoses Not on filedocumented in this encounter Additional Health Concerns Assessment Noted Time PHQ-9 Depression Total Score: 0 07/08/20 23 3:11 PM EDT documented as of this encounter Care Teams Racking Machine Operator Relationship Specialty Start Date End Date Nabeel Aldana MD [address] [place] [address] PCP - General Internal Medicine 07/10/14 Santi Arellano DPM [address] [address] Podiatry 02/01/25 documented as of this encounter
--- OUTSIDE RECORDS SUMMARY | 2025-04-17 14:17 | XMS_ITS | Encounter Summary ---
Author Organization [employer] Address [address] [facility] 7t [place] [address] Care Team Providers Care Paper Bag Inspector Name Role Phone Nabeel Aldana MD Primary Care Provide r Santi Arellano DPM Unavailable [phone] Reason for Visit * Reason Onset Date Comments Reschedule 11/24/2023 Encounter Details Date Type Department Care Team (Late st Contact Info) Description 11/24/2023 Telephone [facility] MEDICINE [address] [place], [place] [phone] Nabeel Aldana MD [address] [place], [place] [phone] Reschedule Social History Tobacco Use Types Packs/Day Years Used Date Smoking Tobacco: Never Passive Smoke Exposure: Never Smokeless Tobacco: Never Depression Answer Date Recorded Patient Health Questionnaire-9 Score 0 07/08/2023 Housing Stability Answer Date Recorded What is your housing situation today? I have anisha sing 09/21/[address] you li [...] Recorded Patient Health Questionnaire-2 Score 0 07/08/2023 Comments Unknown Sex and Gender Information Value Date Recorded Sex Assigned at Female 09/28/2022 10:14 AM EDT Legal Sex Female 10:14 AM EDT Gender Identity Female 09/28/2022 10:14 AM EDT Sexual Orientation Straight 09/28/2022 10 :14 AM EDT documented as of this encounter Miscellaneous Notes * Telephone Encounter - Marcia Lomeli - 11/24/2023 9:25 AM EST Tc from [employer] (son) requesting r/s 11/11/2023 OV with PCP, mortgage or loan underwriter attempted to r/s no availability for November. documented in this encounter Plan of Treatment Upcoming Encounters Date Type Department Care Team (Late st Contact Info) Description 05/08/2025 3:00 PM EDT Office Visit [facility] MEDICINE [address] [place] [address] Nabeel Aldana MD [address] [place] [address] documented as of this encounter Visit Diagnoses Not on filedocumented in this encounter Additional Health Concerns Assessment Noted Time PHQ-9 Depression Total Score: 0 07/08/20 23 3:11 PM EDT documented as of this encounter Care Teams Paper Bag Inspector Relationship Specialty Start Date End Date Nabeel Aldana MD [address] [place] [address] PCP - General Internal Medicine 07/10/14 Santi Arellano DPM [address] [place] [phone] Podiatry 02/01/25 documented as of this encounter
--- OUTSIDE RECORDS SUMMARY | 2025-04-17 14:17 | XMS_ITS | Encounter Summary ---
Author Organization [email or web address] Address [address] [facility] 7t [place] [address] Care Team Providers Care Shop Director Name Role Phone Nabeel Aldana MD Primary Care Provide r Santi Arellano DPM Unavailable [phone] Reason for Visit * Reason Comments Med Refill Encounter Details Date Type Department Care Team (Late st Contact Info) Description 09/29/2023 Telephone [facility] MEDICINE [address] [place], [place] [phone] Nabeel Aldana MD [address] [place], [place] [phone] Med Refill Social History Tobacco Use Types Packs/Day Years [...] AM EDT documented as of this encounter Plan of Treatment Upcoming Encounters Date Type Department Care Team (Late st Contact Info) Description 05/08/2025 3:00 PM EDT Office Visit [facility] MEDICINE [address] [place] [address] Nabeel Aldana MD [address] [place] [address] documented as of this encounter Visit Diagnoses Diagnosis Low vitamin D level documented in this encounter Additional Health Concerns Assessment Noted Time PHQ-9 Depression Total Score: 0 07/08/20 23 3:11 PM EDT documented as of this encounter Care Teams Shop Director Relationship Specialty Start Date End Date Nabeel Aldana MD [address] [place] [address] PCP - General Internal Medicine 07/10/14 Santi Arellano DPM [address] [place] [address] Podiatry 02/01/25 documented as of this encounter
--- OUTSIDE RECORDS SUMMARY | 2025-04-17 14:17 | XMS_ITS | Encounter Summary ---
Author Organization [employer] Address 75 [facility] 7t [place] [address] Care Team Providers Care Personal Care Service Provider Name Role Phone Nabeel Aldana MD Primary Care Provide r Santi Arellano DPM Unavailable Encounter Details Date Type Department Care Team (Late st Contact Info) Description 12/22/2022 Orders Only [facility] MEDICINE [address] [place] [address] Doimngo Ramey, ElanD Social History Tobacco Use Types Packs/Day Years Used Date Smoking Tobacco: Never Assessed Comments Unknown Sex and Gender Information Value [...] Visit [facility] MEDICINE [address] [place], [place] [phone] Nabeel Aldana MD [address] [place], [place] [phone] documented as of this encounter Procedures Procedure Name Priority Date/Time Associated Diagnosis Comments OTHER REF TEST - [facility] Routine 07/05/2023 2:54 PM EDT LIPID PANEL, STANDARD Routine 07/05/2023 2:54 PM EDT documented in this encounter Results * Other Reference Test - Misc (07/05/2023 2:54 PM EDT) Other Ref Test Misc SEE NOTE [facility] Comment:ALBUMIN, RANDOM URIN E W/O CREATININE: ALBUMIN, URINE: 1.7 mg/dL Reference Range: Not established FRANSISCO: The ADA defines abnormalities in albumin excretion as follows: Albuminuria Category Result (mcg/mg creatinine) Normal to Mildly increased <30 Moderately increased 30-299 Severely increased > OR = 300 The ADA recommends that at least two of three specimens collected within a 3-6 month period be abnormal before considering a patient to be within a diagnostic category. Site Information: [facility] [address] [phone] Fiberglass Auto Body Repairer: Comfort Addison M.D. 07/05/2023 2:54 PM EDT 07/06/2023 8:04 AM EDT Narrative [facility] - 07/09/2023 1:24 PM EDT ALBUMIN, RANDOM URINE W/O CREATININE Nabeel Coombs MD LAB BLOOD ORDERABLES Final Result [facility] [address] [place] [address] [phone] * Lipid Panel, Standard (07/05/2023 2:54 PM EDT) Triglycerides 147 mg/dL [facility] Comment:Desirable Triglyceri de: less than 150 mg/dLBorderline High Triglyceride 150-199 mg/dLHigh Triglyceride: 200-499 mg/dLVery High Triglyceride: greater than or equal to 5OO mg/dL Cholesterol 137 mg/dL [facility] Comment:Desirable Cholestero l: less than 200 mg/dLBorderline High Cholesterol: 200-239 mg/dLHigh Cholesterol: greater than 239 mg/dL LDL Cholesterol Calculated 56 mg/dl [facility] Comment:Desirable LDL: less than 100 mg/dLNear Optimal/Above Optimal LDL: 110- 129 mg/dLBorderline High LDL: 130-159 mg/dLHigh LDL: 160-189 mg/dLVery High LDL: greater than or equal to 190 mg/dL HDL Cholesterol 52 mg/dL [facility] Comment:Desirable HDL: great er than 40 mg/dL Note: This HDL assay may give artificially low results in patients with liver disease. 07/05/2023 2:54 PM EDT 07/05/2023 4:17 PM EDT us Nabeel Coombs MD LAB BLOOD ORDERABLES Final Result [facility] [address] [place] [address] [phone] documented in this encounter Visit Diagnoses Not on filedocumented in this encounter Care Teams Personal Care Service Provider Relationship Specialty Start Date End Date Nabeel Aldana MD [address] [place] [address] PCP - General Internal Medicine 07/10/14 Santi Arellano DPM [address] [address] Podiatry 02/01/25 documented as of this encounter
--- OUTSIDE RECORDS SUMMARY | 2025-04-17 14:17 | XMS_ITS | Encounter Summary ---
Author Organization [employer] Address 75 [facility] 7t [place] [address] Care Team Providers Care Kiss Setter Hand Name Role Phone Nabeel Aldana MD Primary Care Provide r Santi Arellano DPM Unavailable [phone] Encounter Details Date Type Department Care Team ([facility] st Contact Info) Description 02/24/2024 Telephone [facility] MEDICINE [address] [place] [address] Nabeel Aldana MD [address] [place], [place] [phone] Social History Tobacco Use Types Packs/Day Years Used Date Smoking Tobacco: Never Passive Smoke Exposure: Never Smokeless Tobacco: Never Depression Answer Date Recorded Patient Health Questionnaire-9 Score 0 07/08/2023 Housing Stability Answer Date Recorded What is your housing situation today? I have anisha rueda 09/21/[address] you [...] Description 05/08/2025 3:00 PM EDT Office Visit [facility] MEDICINE [address] [place] [address] Nabeel Aldana MD [address] [place] [address] documented as of this encounter Visit Diagnoses Not on filedocumented in this encounter Additional Health Concerns Assessment Noted Time PHQ-9 Depression Total Score: 0 07/08/20 23 3:11 PM EDT documented as of this encounter Care Teams Kiss Setter Hand Relationship Specialty Start Date End Date Nabeel Aldana MD [address] [place] [address] PCP - General Internal Medicine 07/10/14 Santi Arellano DPM [address] [place] [phone] Podiatry 02/01/25 documented as of this encounter
--- OUTSIDE RECORDS SUMMARY | 2025-04-17 14:17 | XMS_ITS | Encounter Summary ---
Author Organization [employer] Address [address] [facility] 7t [place] [address] Care Team Providers Care Assistant Production Editor Name Role Phone Nabeel Aldana MD Primary Care Provide r Santi Arellano DPM Unavailable [phone] Reason for Visit * Reason Onset Date Comments Durable Medical Equipment 07/19/2024 Encounter Details Date Type Department Care Team (Late st Contact Info) Description 07/19/2024 Telephone [facility] MEDICINE [address] [place], [place] [phone] Nabeel Aldana MD [address] [place], [place] [phone] Durable Medical Equipment Social History Tobacco Use [...] encounter Miscellaneous Notes * Telephone Encounter - Bailey Browning - 07/19/2024 12:52 PM EDT Tc from Edwin with [employer] informing that they received fax for incontinence supplies but information is missing, missing questions unanswered and quantity is missing documented in this encounter Plan of Treatment Upcoming Encounters Date Type Department Care Team (Late st Contact Info) Description 05/08/2025 3:00 PM EDT Office Visit [facility] MEDICINE [address] [place] [address] Nabeel Aldana MD [address] [place] [address] documented as of this encounter Visit Diagnoses Not on filedocumented in this encounter Additional Health Concerns Assessment Noted Time PHQ-9 Depression Total Score: 0 07/08/20 23 3:11 PM EDT documented as of this encounter Care Teams Assistant Production Editor Relationship Specialty Start Date End Date Nabeel Aldana MD [address] [place] [address] PCP - General Internal Medicine 07/10/14 Santi Arellano DPM [address] [place] [phone] Podiatry 02/01/25 documented as of this encounter
== END 2025-04-17 13:13 | disposition home or self-care (01) ==
LOC: HO.MAMMO 13:12
PROVIDERS: PCP Internal Medicine; Visit Provider Internal Medicine
DX: Z13.820 Encounter for screening for osteoporosis (principal); M85.89 Other specified disorders of bone density and structure, multiple sites
CPT/HCPCS: 77080

== ENCOUNTER → 2025-04-17 13:16 | Outpatient (BNV) | payer OTHER, SELFPAY | PROVIDERS: PCP Internal Medicine; Visit Provider Radiology Diagnostic Radiology | DX: E28.39 Other primary ovarian failure (principal) | CPT/HCPCS: 77080 ==

== ENCOUNTER 2025-10-02 14:21 | Outpatient (AMB) | payer OTHER, SELFPAY ==
--- NOTE | 2025-10-02 14:29 | A.OFFVIS_ITS ---
Intake Visit Reasons: 6m AD Principal Military Analyst Required: Yes Principal Military Analyst Name: #[id number] Accompanied by: Family/Other Allergies Penicillins (PENICILLINS) Allergy (Unknown, Unverified 10/02/25 14:50) RASH Penicillian Allergy (Unknown, Uncoded 10/02/25 14:50) Unknown Medication List - Last Reconciled 10/02/25 by Jess Bridges CNP amlodipine 2.5 mg PO QAM atenolol 12.5 mg PO QAM atorvastatin 40 mg PO BEDTIME calcium carbonate 500 mg PO QAM cetirizine 10 mg PO QAM cholecalciferol (vitamin D3) 125 mcg PO QAM donepezil 10 mg PO BEDTIME 90 days fluticasone propionate 50 mcg/actuation 1 spray intranasal DAILY gabapentin 100 mg PO BEDTIME haloperidol 0.5 mg PO Q8H PRN 90 days hydrochlorothiazide 12.5 mg PO QAM losartan 100 mg PO QAM memantine 10 mg PO BID 90 days metformin ER 500 mg PO QAM primidone 50 mg PO TID 90 days HPI Comments Details: She was doing okay. She was living with her son. Memory was stable, recognizes close family members. Tremors were about the same, and she thought they may even be less. No difficulty eating or drinking. Appetite was okay. Walking with walker, no falls. Mood was okay, agitation controlled with as needed Haldol. Sleep was okay. She was getting injections to R shoulder for arthritis. Previously was having hallucinations, delusions, and paranoid with aggressive behavior, physical and verbal. She has memory problems since around 2006, chronic neck pain which increases with neck movements and some tremor in her head. [facility] Medical History (Updated 10/02/25 @ 14:34 by Jess Bridges CNP) Hypertension Diabetes mellitus Parkinsonian tremor Alzheimer disease Review of Systems Const Denies chills, Denies daytime sleepiness, Denies difficulty sleeping, Denies fatigue, Denies fever(s), Denies frequent falls, Denies headache(s), Denies increased appetite, Denies poor appetite, Denies snoring, Denies weakness, Denies weight gain and Denies weight loss Eyes Denies loss of vision ENT Denies vertigo, Denies dizziness, Denies headache(s) and Reports neck pain Card Denies chest pain at rest, Denies chest pain with activity, Denies syncope, Denies leg edema, Denies palpitations, Denies dyspnea and Denies dyspnea on exertion Resp Denies cough, Denies dyspnea, Denies dyspnea on exertion and Denies snoring GI Denies abdominal pain, Denies constipation, Denies heartburn, Denies diarrhea and Denies nausea Denies urinary frequency, Denies urinary incontinence and Denies urinary urgency Musc Denies abnormal gait, Denies back pain, Denies myalgias, Denies arthralgias, Reports neck pain, Denies numbness and Denies tingling Neuro Denies abnormal gait, Denies vertigo, Denies dizziness, Denies syncope, Denies frequent falls, Denies headache(s), Denies lack of coordination, Denies loss of vision, Reports memory loss, Denies numbness, Denies Other visual disturbances, Denies restless legs, Denies seizure-like activity, Denies tingling, Denies paresthesias, Reports tremor(s) and Denies weakness Psych Denies anxiety, Denies depression, Denies auditory hallucinations, Reports memory loss and Denies visual hallucinations Endo Denies fatigue and Denies palpitations Physical Exam Const Other: General Appearance:? normal, in no acute distress. Heart:? S1, S2 normal, no murmurs. Lungs:? clear anteriorly and posteriorly. Musculoskeletal:? normal. Extremities:? no edema. Psych:? alert, as below. Neuro Other: Abnormal Neurological Findings:?MMSE 12/30. Tremors of BUE, some intermittent tremors in legs. Walks with walker.?She was able to tell me her month and year. She was unable to tell me her age (says she is 80). She was able to tell me that she was here with her son and her daughter's name, but was unable to tell me their relation. Mental Status: alert, as below. Cranial Nerves: Pupils are equal, round, and reactive to light. External ocular muscles are intact. Visual mckeon are full, no ptosis. Face is symmetrical, no facial weakness or droop. Facial sensations are normal. Tongue protrudes in midline. Palate elevates symmetrically. Shoulder shrugging is normal Motor Examination: Normal muscle tone, bulk and strength. No atrophy or fasciculations. No drift of the extended upper extremities. DTR 2+. Plantars are flexor. Sensory Exam: Normal light touch, temperature, pinprick, vibration, and joint- position sensations. Rhomberg sign is absent. Coordination: No ataxia. No titubation. Gait Exam: With walker. Cerebellar Signs: [id number] is okay. Extrapyramidal System: Tremor as above. No rigidity with normal facial expressions. No bradykinesia. No bradyphrenia. Normal arm swing and posture. No propulsion or retropulsion. Speech: Normal. MMSE Level of Consciousness: Alert. Orientation: Does not know correct year, month, date, day and season. Does not know correct city, county and state. Does not know correct location and floor. Registration: Able to register 3 objects. Attention: Serial 7's unable. Recall: Able to recall 0 out of 3 objects. Language: Normal spontaneous speech, fluency, repetition, naming, comprehension, reading, and writing. Total Score: 30. Assessment & Plan Assessment & Plan (1) Alzheimer disease: Code(s): G30.9 - Alzheimer's disease, unspecified; F02.80 - Dementia in other diseases classified elsewhere, unspecified severity, without behavioral disturbance, psychotic disturbance, mood disturbance, and anxiety Category: Medical Plan: Continue donepezil 10mg 1 tablet at bedtime. Continue memantine 10mg 1 tablet twice a day. Continue haloperidol 0.5mg 1 tablet as needed for agitation every 8 hours #90 for 90 days. (2) Benign essential tremor: Code(s): G25.0 - Essential tremor Category: Medical Plan: Continue primidone 50mg 1 tablet three times a day. (3) Parkinsonian tremor: Code(s): G20 - Parkinson's disease Category: Medical Plan . Medications: Refilled donepezil 10 mg PO BEDTIME 90 tabs 1RF 90 days haloperidol 0.5 mg PO Q8H PRN 90 tabs 1RF agitation 90 days memantine 10 mg PO BID 180 tabs 1RF 90 days primidone 50 mg PO TID 270 tabs 1RF 90 days Coding Level of Care Code Est Pt Level 4 (17927) Diagnoses Alzheimer disease G30.9; F02.80 Benign essential tremor G25.0 Parkinsonian tremor G20
--- OUTSIDE RECORDS SUMMARY | 2025-10-02 17:23 | XMS_ITS | Encounter Summary ---
Author Organization [facility] [facility] [employer] Address [address] [facility] 7t [place] [address] Care Team Providers Care Baking Assistant Name Role Phone Nabeel Aldana MD Primary Care Provide r Santi Arellano DPM Unavailable [phone] Reason for Visit * Reason Onset Date Comments Durable Medical Equipment 07/19/2024 Encounter Details Date Type Department Care Team (Late st Contact Info) Description 07/19/2024 Telephone [facility] [address] [place], [place] [phone] Nabeel Aldana MD [address] [place], [place] [phone] Durable Medical Equipment Social History Tobacco Use [...] 12:52 PM EDT Tc from Edwin with [employer] informing that they received fax for incontinence supplies but information is missing, missing questions unanswered and quantity is missing documented in this encounter Plan of Treatment Upcoming Encounters Date Type Department Care Team (Late st Contact Info) Description 10/16/2025 3:00 PM EST Office Visit [facility] [address] [place] [address] Nabeel Aldana MD [address] [place] [address] documented as of this encounter Visit Diagnoses Not on filedocumented in this encounter Additional Health Concerns Assessment Noted Time PHQ-9 Depression Total Score: 0 07/08/20 23 3:11 PM EDT documented as of this encounter Care Teams Baking Assistant Relationship Specialty Start Date End Date Nabeel Aldana MD [address] [place] [address] PCP - General Internal Medicine 07/10/14 Santi Arellano DPM [address] [place] [phone] Podiatry 02/01/25 documented as of this encounter
--- OUTSIDE RECORDS SUMMARY | 2025-10-02 17:23 | XMS_ITS | Encounter Summary ---
Author Organization [employer] Address [address] [facility] 7t [place] [address] Care Team Providers Care Monument Setter Helper Name Role Phone Nabeel Aldana MD Primary Care Provide r Santi Arellano DPM Unavailable [phone] Reason for Visit * Reason Comments Med Refill Encounter Details Date Type Department Care Team (Late st Contact Info) Description 09/29/[address] [facility] MEDICINE [address] [place], [place] [phone] Nabeel Aldana MD [address] [place], [place] [phone] Med Refill Social History Tobacco Use Types [...] 3:00 PM EST Office Visit [facility]INE [address] [place] [address] Nabeel Aldana MD [address] [place] [address] documented as of this encounter Visit Diagnoses Diagnosis Low vitamin D level documented in this encounter Additional Health Concerns Assessment Noted Time PHQ-9 Depression Total Score: 0 07/08/20 23 3:11 PM EDT documented as of this encounter Care Teams Monument Setter Helper Relationship Specialty Start Date End Date Nabeel Aldana MD [address] [place] [address] PCP - General Internal Medicine 07/10/14 Santi Arellano DPM [address] [place] [phone] Podiatry 02/01/25 documented as of this encounter
--- OUTSIDE RECORDS SUMMARY | 2025-10-02 17:23 | XMS_ITS | Encounter Summary ---
Author Organization [employer] Address [address] [facility] 7t [place] [address] Care Team Providers Care Rotary Machine Operator Name Role Phone Nabeel Aldana MD Primary Care Provide r Santi Arellano DPM Unavailable [phone] Encounter Details Date Type Department Care Team ([facility] st Contact Info) Description 02/24/2024 Telephone [facility] [address] [place] [address] Nabeel Aldana MD [address] [place], [place] [phone] Social History Tobacco Use Types Packs/Day Years [...] Description 10/16/2025 3:00 PM EST Office Visit [facility] [address] [place] [address] Nabeel Aldana MD [address] [place] [address] documented as of this encounter Visit Diagnoses Not on filedocumented in this encounter Additional Health Concerns Assessment Noted Time PHQ-9 Depression Total Score: 0 07/08/20 23 3:11 PM EDT documented as of this encounter Care Teams Rotary Machine Operator Relationship Specialty Start Date End Date Nabeel Aldana MD [address] [place] [address] PCP - General Internal Medicine 07/10/14 Santi Arellano DPM [address] [place] [phone] Podiatry 02/01/25 documented as of this encounter
--- OUTSIDE RECORDS SUMMARY | 2025-10-02 17:23 | XMS_ITS | Encounter Summary ---
Author Organization [employer] Address [address] [facility] 7t [place] [address] Care Team Providers Care High [employer] Foreign Language Teacher Name Role Phone Nabeel Aldana MD Primary Care Provide r Santi Arellano DPM Unavailable Encounter Details Date Type Department Care Team (Late st Contact Info) Description 12/22/2022 Orders Only [facility] [address] [place] [phone] Domingo Ramey, ElanD Social History Tobacco Use Types [...] Description 10/16/2025 3:00 PM EST Office Visit [facility] [address] [place] [address] [phone] Nabeel Aldana MD [address] [place], [place] [phone] documented as of this encounter Procedures Procedure Name Priority Date/Time Associated Diagnosis Comments OTHER REF TEST - [facility] Routine 07/05/2023 2:54 PM EDT LIPID PANEL, STANDARD Routine 07/05/2023 2:54 PM EDT documented in this encounter Results * Other Reference Test - Misc (07/05/2023 2:54 PM EDT) Other Ref Test Misc SEE NOTE [facility] Comment:ALBUMIN, RANDOM URIN E W/O [...] be within a diagnostic category. Site Information: [place] [address] [place] [address] [phone] Netsuite Consultant: Comfort Addison M.D. 07/05/2023 2:54 PM EDT 07/06/2023 8:04 AM EDT Narrative [facility] - 07/09/2023 1:24 PM EDT ALBUMIN, RANDOM URINE W/O CREATININE us Nabeel Coombs MD LAB BLOOD ORDERABLES Final Result [facility] [address] [place] [phone] * Lipid Panel, Standard (07/05/2023 2:54 PM EDT) Triglycerides 147 mg/dL [facility] Comment:Desirable Triglyceri de: less than 150 mg/dLBorderline High Triglyceride 150-199 mg/dLHigh Triglyceride: 200-499 mg/dLVery High Triglyceride: greater than or equal to 5OO mg/dL Cholesterol 137 mg/dL [facility] Comment:Desirable Cholestero l: less than 200 mg/dLBorderline High Cholesterol: 200-239 mg/dLHigh Cholesterol: greater than 239 mg/dL LDL Cholesterol Calculated 56 mg/dl [facility] Comment:Desirable LDL: less than 100 mg/dLNear Optimal/Above Optimal LDL: 110- 129 mg/dLBorderline High LDL: 130-159 mg/dLHigh LDL: 160-189 mg/dLVery High LDL: greater than or equal to 190 mg/dL HDL Cholesterol 52 mg/dL [facility] Comment:Desirable HDL: great er than 40 mg/dL Note: This HDL assay may give artificially low results in patients with liver disease. 07/05/2023 2:54 PM EDT 07/05/2023 4:17 PM EDT us Nabeel Coombs MD LAB BLOOD ORDERABLES Final Result [facility] [address] [place] [address] [phone] documented in this encounter Visit Diagnoses Not on filedocumented in this encounter Care Teams High School Foreign Language Teacher Relationship Specialty Start Date End Date Nabeel Aldana MD [address] [place] [address] PCP - General Internal Medicine 07/10/14 Santi Arellano DPM [address] [phone] Podiatry 02/01/25 documented as of this encounter
--- OUTSIDE RECORDS SUMMARY | 2025-10-02 17:23 | XMS_ITS | Encounter Summary ---
Author Organization [employer] Address [address] [facility] 7t [place] [address] Care Team Providers Care Serology Technician Name Role Phone Nabeel Aldana MD Primary Care Provide r Santi Arellano DPM Unavailable [phone] Reason for Visit * Reason Onset Date Comments Reschedule 11/24/2023 Encounter Details Date Type Department Care Team (Late st Contact Info) Description 11/24/2023 Telephone [facility] [address] [place], [place] [phone] Nabeel Aldana MD [address] [place], [place] [phone] Reschedule Social History Tobacco Use Types Packs/Day [...] (son) requesting r/s 11/11/2023 OV with PCP, personal lines underwriter attempted to r/s no availability for November. documented in this encounter Plan of Treatment Upcoming Encounters Date Type Department Care Team (Late st Contact Info) Description 10/16/2025 3:00 PM EST Office Visit [facility] [address] [place] [address] Nabeel Aldana MD [address] [place] [address] documented as of this encounter Visit Diagnoses Not on filedocumented in this encounter Additional Health Concerns Assessment Noted Time PHQ-9 Depression Total Score: 0 07/08/20 23 3:11 PM EDT documented as of this encounter Care Teams Serology Technician Relationship Specialty Start Date End Date Nabeel Aldana MD [address] [place] [address] PCP - General Internal Medicine 07/10/14 Santi Arellano DPM [address] [place] [phone] Podiatry 02/01/25 documented as of this encounter
--- OUTSIDE RECORDS SUMMARY | 2025-10-02 17:23 | XMS_ITS | Clinical Summary ---
Author Organization [employer] Address [address] [facility] [address] [place] [address] Care Team Providers Care Servicer [employer] Name Role Phone Nabeel Aldana MD Primary Care Provide r Santi Arellano DPM Unavailable [phone] Allergies Active Allergy Reactions Criticality Noted Date Comments Penicillins Other reaction(s): unspecified, unspecified Medications memantine (Namenda) 10 MG tablet take 1 tablet by oral route twice daily in the morning and at bedtime. 09/17/20 22 Active Emollient (CeraVe Moisturizing) cream use once daily 09/01/20 22 Active donepezil (Aricept) 10 MG tablet take 1 tablet by oral route every day at bedtime 06/16/20 22 Active primidone (Mysoline) 50 MG tablet take 0.5 tablet (25 mg) by mouth twice daily in the morning and at bedtime 10/09/20 21 Active haloperidol (Haldol) 0.5 MG tablet Take 1 tablet by mouth every 12 (twelve) hours. Active olopatadine (Patanol) 0.1 % ophthalmic solution PLACE 1 DROP INTO THE AFFECTED EYE(S) EVERY 6 TO 8 HOURS, TWICE DAILY, FOR ALLERGIES 5 mL 1 11/16/20 23 Active Diclofenac Sodium 1 % gelIndications: Chronic midline low back pain without sciatica Apply to affected joint twice daily PRN 50 g 1 02/02/20 25 Active fluticasone (Flonase) 50 MCG/ACT nasal spray INSTILL 1 SPRAY IN EACH NOSTRIL ONCE DAILY 16 g 5 07/03/20 25 Active gabapentin (Neurontin) 100 MG capsuleIndicati ons:Chronic midline low back pain without sciatica TAKE 1 CAPSULE BY MOUTH AT BEDTIME 30 capsule 5 08/02/20 25 Active amLODIPine (Norvasc) 2.5 MG tabletIndicatio ns:Type 2 diabetes mellitus without complication, unspecified whether detention insulin use TAKE 1 TABLET BY MOUTH EVERY MORNING 90 tablet 1 08/02/20 25 Active atorvastatin (Lipitor) 40 MG tabletIndicatio ns:Type 2 diabetes mellitus without complication, unspecified whether technician terminal and repeater insulin use TAKE 1 TABLET BY MOUTH AT BEDTIME 90 tablet 1 08/02/20 25 Active cholecalciferol (Vitamin D-3) 125 MCG (5000 UT) tabletIndicatio ns:Low vitamin D level TAKE 1 TABLET BY MOUTH EVERY MORNING 90 tablet 1 08/02/20 25 Active hydroCHLOROthia zide 12.5 MG tabletIndicatio ns:Type 2 diabetes mellitus without complication, unspecified whether detention insulin use TAKE 1 TABLET BY MOUTH EVERY MORNING 90 tablet 1 08/02/20 25 Active metFORMIN XR (Glucophage-XR) 500 MG 24 hr tabletIndicatio ns:Type 2 diabetes mellitus without complication, unspecified whether detention insulin use TAKE 1 TABLET BY MOUTH EVERY MORNING WITH BREAKFAST 90 tablet 1 08/02/20 25 Active atenolol (Tenormin) 25 MG tablet TAKE 1/2 TABLET BY MOUTH EVERY MORNING 45 tablet 1 08/02/20 25 Active losartan (Cozaar) 100 MG tabletIndicatio ns:Type 2 diabetes mellitus without complication, unspecified whether detention insulin use TAKE 1 TABLET BY MOUTH EVERY MORNING 90 tablet 1 08/02/20 25 Active Oyster Shell Calcium 500 MG tabletIndicatio ns:Chronic midline low back pain without sciatica TAKE 1 TABLET BY MOUTH EVERY MORNING 90 tablet 1 09/06/20 25 Active cetirizine (ZyrTEC) 10 MG tabletIndicatio ns:Essential hypertension Take 1 tablet (10 mg) by mouth in the morning. 30 tablet 09/11/20 25 Active Oyster Shell Calcium 500 MG tabletIndicatio ns:Chronic midline low back pain without sciatica TAKE 1 TABLET BY MOUTH EVERY MORNING 90 tablet 1 04/03/ 025 Discontinued cetirizine (ZyrTEC) 10 MG tabletIndicatio ns:Essential hypertension TAKE 1 TABLET BY MOUTH EVERY MORNING 30 tablet 08/02/20 25 025 Discontinued(Re order (will not trigger notification to Pharmacy)) Active Problems Problem Noted Date Diagnosed Date [...] be re-evaluated again Moderate dementia with agitation (CMS/HCC) 10/30 Assessment & Plan (02/01/2025 11:48 AM EST): [...] negative, EEG was negative 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 f/u 3 months Carcinoma in [...] (08/29/2024 10:08 AM EDT): last ECHO from [facility] done on 09/09/2016 showed moderate to severe Tricuspid regurgitation unchanged from previous. Assessment & Plan (07/08/2023 3:36 PM EDT): Most recent ECHO from [facility] done on 09/09/2016 showed moderate to severe Tricuspid regurgitation unchanged from previous. Chronic low back pain 09/19/2012 Assessment & Plan (02/01/2025 12:02 PM EST): Pt tamika Has a Hx of chronic low back pain, treated in the past by a local doorperson Dr Wren with epidural injections with good results.. MRI done at [facility] 10/27/2009 showed a complex disc bulge at the level of L4-L5 which I suspected was causing her symptoms. In the past she was seen at [facility] and last visit she told me she wanted to go back for consideration of epidural injections. She was seen on 12/05/2012 and given an epidural injections with excellent results. She had been under the care of Dr. Marquez who had prescribed Tramadol and gabapentin. Pt no longer sees Dr. Marquez. No longer taking Tramadol since 2022 per [facility] Plan; Start Tylenol arthritis and Diclofenac Last visit we requested a positioning bed Assessment & Plan (08/29/2024 10:09 AM EDT): Pt tamika Has a Hx of chronic low back pain, treated in the past by a local doorperson Dr Wren with epidural injections with good results.. MRI done at [facility] 10/27/2009 showed a complex disc bulge at the level of L4-L5 which I suspected was causing her symptoms. In the past she was seen at [facility] and last visit she told me she wanted to go back for consideration of epidural injections. She was seen on 12/05/2012 and given an epidural injections with excellent results. she continues on Tramadol and gabapentin. Last visit we requested a positioning bed Assessment & Plan (07/08/2023 3:38 PM EDT): Pt with chronic low back pain, treated in the past by a local doorperson Dr Wren with epidural injections with good results.. MRI done at [facility] 10/27/2009 showed a complex disc bulge at the level of L4-L5 which I suspected was causing her symptoms. In the past she was seen at [facility] and last visit she told me [...] Encounters Date Type Department Care Team Description 09/11/2025 Refill [facility] [address] [place], [place] [phone] Nabeel Aldana MD Essential hypertension 09/05/2025 Refill [facility] [address] [place] [address] Nabeel Aldana MD Chronic midline low back pain without sciatica 08/02/2025 Refill [facility] [address], [place] [phone] Nabeel Aldana MD Chronic midline low back pain without sciatica; Essential hypertension; Type 2 diabetes mellitus without complication, unspecified whether detention insulin use ([facility]); Low vitamin D level 07/03/2025 Refill [facility] [address] [place] [address] Nabeel Aldana MD from Last 3 Months Immunizations Immunization Administration [...] 64 02/01/2025 11:46 AM EST Temperature 36.1 C (96.9 F) 02/01/2025 11:46 AM EST Respiratory Rate 20 02/01/2025 11:46 AM EST [...] Description 10/16/2025 3:00 PM EST Office Visit [facility] [address] [place] [address] Nabeel Aldana MD [address] [place] [address] Health Maintenance Due Date Last Done Comments [...] 01/19/2025 07/18/2024, , 11/18/2017, Additional history exists SDOH Screening 06/02/2025 06/02/2024 Mammogram 07/18/2025 07/18/2024, 06/17/2023 COVID-19 Vaccine ( season) 2025 08/29/2024, 09/01/2022, 08/28/2021, Additional history exists Influenza Vaccine (#1) 2025 4, 09/01/2022, 09/02/2021, Additional history exists Diabetes: Hemoglobin A1C 08/04/2025 025, 08/29/2024, 07/08/2023, Additional history exists Depression Screening 08/29/2025 08/29/2024, 08/29/20 24 Lipid Panel 08/30/2025 08/30/2024, 0805/2023, 04/06/2022 Alcohol/Substance Use Screening 02/01/2026 02/01/2025 Tobacco Screening 02/01/2026 02/01/2025 Eye Exam 11/03/2026 11/03/2024, 1204/2024, 11/03/2024, Additional history exists Dental X-Ray: Full Mouth 07/19/2027 024, 11/06/2015, 02/06/2010 DTaP/Tdap/Td Vaccines (2 - Td or Tdap) 09/01/2032 09/01/2022, 01/08/2015, 10/04/1997 Pneumococcal Vaccine: 50+ Years Completed 11/26/2015, 01/19/2014, 04/03/2011 HIB Vaccines Aged Out No longer eligi [...] complication, without long-term current use of insulin ([facility]) LIPID PANEL, STANDARD Routine 08/30/2024 11:09 AM EDT Type 2 diabetes mellitus without complication, without long-term current use of insulin ([facility]) BI MAMMOGRAM SCREENING TOMOSYNTHESIS BILATERAL Routine 07/18/2024 [...] Media Lot # [id number] Lot# Expiration Date ,404 Blood 02/01/2025 11:5 6 AM EST Nabeel Coombs MD POINT OF CARE TEST EN TER/EDIT ORDERABLES Final Result * (ABNORMAL) Lipid Panel, Standard (08/30/2024 11:09 AM EDT) Triglycerides 172(H) <150 mg/dL [facility] Comment:Desirable Triglyceri de: less than 150 mg/dLBorderline High Triglyceride 150-199 mg/dLHigh Triglyceride: 200-499 mg/dLVery High Triglyceride: greater than or equal to 5OO mg/dL Cholesterol 124 <200 mg/dL [facility] Comment:Desirable Cholestero l: less than 200 mg/dLBorderline High Cholesterol: 200-239 mg/dLHigh Cholesterol: greater than 239 mg/dL LDL Cholesterol Calculated 47 <100 mg/dL [facility] Comment:Desirable LDL: less than 100 mg/dLNear Optimal/Above Optimal LDL: 110- 129 mg/dLBorderline High LDL: 130-159 mg/dLHigh LDL: 160-189 mg/dLVery High LDL: greater than or equal to 190 mg/dL HDL Cholesterol 43 >40 mg/dL [facility] Comment:Desirable HDL: great er than 40 mg/dL Note: This HDL assay may give artificially low results in patients with liver disease. Blood Venous blood specimen / Unknown 08/30/2024 11:09 AM EDT 08/30/2024 1:43 PM EDT Nabeel Coombs MD LAB BLOOD ORDERABLES Final Result [facility] [address] [place] [phone] * BI Mammogram Screening Tomosynthesis Bilateral (07/18/2024 1:55 PM EDT) Anatomical Region Laterality Modality Breast Bilateral Mammography 07/18/2024 1:55 PM EDT Narrative 08/10/2024 4:55 PM EDT [facility] [address] [place] [address] Mammography Report Signed Patient: Mirian Coulter MR#: [id number] : 1940 Acct:[id number] Age/Sex: 84 / F ADM Date: 07/18/24 Loc: HO.MAMMO Attending Dr: Nabeel Elizabeth MD Ordering Physician: Nabeel Elizabeth MD Resu lts: 2Benign Findings Date of Service: 07/18/24 Follow Up: 1 Year From Orig inal Mammogram Procedure(s): MM tomosynthesis screening BI Accession Number(s): [id number] cc: Nabeel Elizabeth MD EXAMINATION: MM SCREENING [...] 08/10/24 1652 DD/ 1355 TD/TT: 07/18/24 1410 Sales And Marketing Intern: Procedure Note Donotuseinterpreter, Image - 08/10/2024 [facility] [address] [place], [place] [address] Mammography Report Signed Patient: Mirian Coulter MR#: [id number] : 9Acct:[id number] Age/Sex: 84 / FADM Date: 07/18/24 Loc: [facility] Attending Dr: Nabeel Elizabeth MD Ordering Physician: Nabeel Elizabeth MDResu lts: 2Benign Findings Date of Service: 07/18/24Follow Up: 1 Year From Orig inal Mammogram Procedure(s): MM tomosynthesis screening BI Accession Number(s): [id number] cc: Nabeel Elizabeth MD EXAMINATION: MM SCREENING [...] 08/10/24 1652 DD/ 1355 TD/TT: 07/18/24 1410 Sales And Marketing Intern: Nabeel Coombs MD IMG BI PROCEDURES Fin al Result * ALBUMIN, RANDOM URINE W/CREATININE (04/06/2022 10:27 AM EDT) Microalbumin Urine 1.6 See Note: mg/dL [facility] Comment: Reference Range: Reference Range Not established Microalb/Creat Ratio 9 <30 mcg/mg creat [facility] Comment: The ADA defines abnormalities in albumin excretion as follows: Albuminuria Category Result (mcg/mg creatinine) Normal to Mildly increased <30 Moderately increased 30-299 Severely increased > OR = 300 The ADA recommends that at least two of three specimens collected within a 3-6 month period be abnormal before considering a patient to be within a diagnostic category. Creatinine, Urine 174 20 - 275 mg/dL [facility] 04/06/2022 10:2 7 AM EDT us Nabeel Coombs MD LAB URINE ORDERABLES Final Result [facility] [address] [phone], from Last 3 Months or Most Recently Relevant to Health Maintenance Insurance [facility] [employer] (HMO D-SNP) [facility] Advance Directives Documents on File Type Date Recorded Patient [employer] Expl anation Advance Directives and Living Will 05/02/2024 Health Care Proxy 05/02/24 Care Teams Serv[employer] Relationship Specialty Start Date End Date Nabeel Aldana MD [address] [place] [phone] PCP - General Internal Medicine 07/10/14 Santi Arellano DPM [address] [place] [phone] Podiatry 02/01/25
--- OUTSIDE RECORDS SUMMARY | 2025-10-02 17:23 | XMS_ITS | Patient Health Record ---
Author Organization [employer] Address [address] [place] [id number] Care Team Providers Care Cdl A Driver Name Role Phone Damon Dorado Unavailable [phone] Reason For Referral No Information Plan Of Treatment No Information
== END 2025-10-02 15:01 | disposition home or self-care (01) ==
LOC: HO.HSM 14:21
PROVIDERS: PCP Internal Medicine; Referring Provider Internal Medicine; Visit Provider Registered Nurse
DX: G30.9 Alzheimer's disease, unspecified (principal); F02.80 Dementia in other diseases classified elsewhere, unspecified severity, without behavioral disturbance, psychotic disturbance, mood disturbance, and anxiety; G25.0 Essential tremor; G20.C Parkinsonism, unspecified
CPT/HCPCS: 99214

== ENCOUNTER → 2025-10-02 14:21 | Outpatient (BNVA) | payer OTHER, SELFPAY | PROVIDERS: PCP Internal Medicine; Referring Provider Internal Medicine; Visit Provider Registered Nurse | DX: G30.9 Alzheimer's disease, unspecified (principal); F02.80 Dementia in other diseases classified elsewhere, unspecified severity, without behavioral disturbance, psychotic disturbance, mood disturbance, and anxiety; G20.C Parkinsonism, unspecified | CPT/HCPCS: 99212 ==

== ENCOUNTER 2025-10-18 16:00 | Outpatient (REF) | payer OTHER, SELFPAY ==
--- OUTSIDE RECORDS SUMMARY | 2025-10-16 15:00 | XMS_ITS | Encounter Summary ---
Author Organization [email or web address] Address [address] [address] [place] [address] Care Team Providers Care Executive Communications Manager Name Role Phone Nabeel Aldana MD Primary Care Provide r Santi Arellano DPM Unavailable [phone] Reason for Visit * Reason Comments Follow-up Encounter Details Date Type Department Care Team (Late st Contact Info) Description 10/16/2025 3:00 PM EST Office Visit [facility] [address] [place] [address] Nabeel Aldana MD [address] [place], [place] [phone] Moderate dementia with agitation, unspecified dementia type (CMS/HCC) (HCC) (Primary Dx); Type 2 diabetes mellitus without complication, without long-term current use of insulin (HCC); Essential hypertension; Acute gastritis without hemorrhage, unspecified gastritis type; Constipation, unspecified constipation type; Stress incontinence of urine; Encounter for immunization Social History Tobacco Use Types Packs/Day Years Used Date Smoking Tobacco: Never Passive Smoke Exposure: Never Smokeless Tobacco: Never Alcohol Answer Date Recorded How often do you have a drink containing alcohol ? 0 10/16/2025 How many drinks containing a lcohol do you have on a typical day when you are drinking? 0 10/16/2025 How often do you have six or more drinks on one occasion? 0 10/16/2025 Depression Answer Date Recorded Patient Health Questionnaire-9 [...] AM EDT documented as of this encounter Last Filed Vital Signs Vital Sign Reading Time Taken Comments Blood Pressure 110/58 10/16/2025 3:19 PM EST Pulse 77 10/16/2025 3:19 PM EST Temperature 37.2 C (98.9 F) 10/16/2025 3:19 PM EST Respiratory Rate 20 10/16/2025 3:19 PM EST Oxygen Saturation 99% 10/16/2025 3:19 PM EST Inhaled Oxygen Concentration - - Weight 54.8 kg (120 lb 12.8 oz) 10/16/2025 3:19 PM EST Height 147.3 cm (4' 10 ) 10/16/2025 3:19 PM EST Body Mass Index 25.25 10/16/2025 3:19 PM EST documented in this encounter Progress Notes * Nabeel Coombs MD - 10/16/2025 3:00 PM EST SUBJECTIVE Mirian Bermudez is a 85 y.o. female who presents for Follow-up. HPI Review of Systems Constitutional: Negative for fever. HENT: Negative for sore throat. Respiratory: Negative for cough and shortness of breath. Cardiovascular: Negative for chest pain. Gastrointestinal: Negative for abdominal pain. Neurological: Negative for headaches. Allergies[1] OBJECTIVE Vitals: 10/16/25 1519 BP: 110/58 BP Location: Left arm Patient Position: Sitting BP Cuff Size: Adult Pulse: 77 Resp: 20 Temp: 98.9 ??F (37.2 ??C) TempSrc: Oral SpO2: 99% Weight: 120 lb 12.8 oz (54.8 kg) Height: 4' 10 (1.473 m) Physical Exam Vitals reviewed. Constitutional: Appearance: Normal appearance. HENT: Head: Normocephalic and atraumatic. Right Ear: External ear normal. Left Ear: External ear normal. Nose: Nose normal. Mouth/Throat: Mouth: Mucous membranes are moist. Eyes: Conjunctiva/sclera: Conjunctivae normal. Cardiovascular: Rate and Rhythm: Normal rate and regular rhythm. Pulmonary: Effort: Pulmonary effort is normal. Breath sounds: Normal breath sounds. Skin: General: Skin is warm. Neurological: Mental Status: She is alert. Mental status is at baseline. Assessment/Plan Problem List Items Addressed This Visit Diabetes mellitus, type II (HCC) Patient is here for a routine follow up DM controlled She is on a regimen of: Metformin 500 mg po QD Hgb A1c 10/16/2025: from: 6.7 was 6.8 Eye exam was last done by Dr Sinclair 11/03/2024 Microalbumin checked on: 01/14/2021 was: 0.4 Pt is on ARB. Foot check risk of zero Pt is on ASA Pt advised to: adhere to diabetic diet check your blood sugars regularly check your feet on a daily basis. 4 month follow up Relevant Orders POCT Glucose (Completed) POCT Hgb A1c (Completed) TSH with Reflex to Free T4 Lipid Panel, Standard Albumin, Random Urine W/Creatinine Moderate dementia with agitation (CMS/HCC) (HCC) - Primary Pt here for a follow up Remains stable per family member Pt is being followed by Neurology, last note on record 10/02/2025 She is on: Namenda 10 mg po BID and Aricept 10 mg po daily Haldol 0.5 1 tab q 12 hrs. 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 f/u 3 months Essential hypertension Pt is here for a follow up [...] about medication compliance, counseled about weight loss. Repeat BMP Relevant Orders Basic Metabolic Panel Urinary incontinence Pt needs bed pads Other Visit Diagnoses Acute gastritis without hemorrhage, unspecified gastritis type Relevant Medications Omeprazole 20 MG tablet delayed-release Constipation, unspecified constipation type Relevant Medications docusate sodium (Colace) 100 MG capsule This note was drafted using Ambient (AI) technology. The patient/patient's guardian has been informed and has consented to the use of this technology: Yes No future appointments. [1] Allergies Allergen Reactions Penicillins Other reaction(s): unspecified, unspecified documented in this encounter Miscellaneous Notes * Assessment & Plan Note - Nabeel Coombs MD - 10/16/2025 3:31 PM EST Associated Problem(s): Urinary incontinence Pt needs bed pads * Assessment & Plan Note - Nabeel Coombs MD - 10/16/2025 3:23 PM EST Associated Problem(s): Essential hypertension Pt is here for a follow up [...] about medication compliance, counseled about weight loss. Repeat BMP * Assessment & Plan Note - Nabeel Coombs MD - 10/16/2025 3:23 PM EST Associated Problem(s): Diabetes mellitus, type II (HCC) Patient is here for a routine follow up DM controlled She is on a regimen of: Metformin 500 mg po QD Hgb A1c 10/16/2025: from: 6.7 was 6.8 Eye exam was last done by Dr Sinclair 11/03/2024 Microalbumin checked on: 01/14/2021 was: 0.4 Pt is on ARB. Foot check risk of zero Pt is on ASA Pt advised to: adhere to diabetic diet check your blood sugars regularly check your feet on a daily basis. 4 month follow up * Assessment & Plan Note - Nabeel Coombs MD - 10/16/2025 3:22 PM EST Associated Problem(s): Moderate dementia with agitation (CMS/HCC) (HCC) Pt here for a follow up Remains stable per family member Pt is being followed by Neurology, last note on record 10/02/2025 She is on: Namenda 10 mg po BID and Aricept 10 mg po daily Haldol 0.5 1 tab q 12 hrs. 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 f/u 3 months * Addendum Note - Senia Fraser RN - 10/16/2025 3:00 PM ESTAddended by: SENIA FRASER on: 10/16/2025 03:51 PM Modules accepted: Orders documented in this encounter Plan of Treatment Scheduled Orders Name Type Priority Associated Diagnoses Orde r Schedule Basic Metabolic Panel Lab Routine Essential hypertension Ordered: 10/16/2025 TSH with Reflex to Free T4 Lab Routine Type 2 diabetes mellitus without complication, without long-term current use of insulin (HCC) Ordered: 10/16/2025 Lipid Panel, Standard Lab Routine Type 2 diabetes mellitus without complication, without long-term current use of insulin (HCC) Ordered: 10/16/2025 Albumin, Random Urine W/Creatinine Lab Routine Type 2 diabetes mellitus without complication, without long-term current use of insulin (HCC) Ordered: 10/16/2025 documented as of this encounter Goals Goal Patient Goal Type Associated Problems Recent Progress Patient-Stated? Author Help patients manage their type 2 diabetes Care Plan Help patients manage their type 2 diabetes No John Ziegler, Ivan Weekly blood pressure task Care Plan Weekly blood pressure task No John Ziegler, Ivan Help patients manage their type 2 diabetes Care Plan Help patients manage their type 2 diabetes No John Ziegler, PharmD Patient has chronic kidney disease Care Plan Patient has chronic kidney disease No John Ziegler PharmD Weekly blood pressure task Care Plan Weekly blood pressure task No John Ziegler PharmD Patient has chronic kidney disease Care Plan Patient has chronic kidney disease No John Ziegler PharmD Weekly blood pressure task Care Plan Weekly blood pressure task No Carrie Tapia [place] Weekly blood pressure task Care Plan Weekly blood pressure task No Carrie Tapia [place] Patient has chronic kidney disease Care Plan Patient has chronic kidney disease No Carrie Tapia [place] Patient has chronic kidney disease Care Plan Patient has chronic kidney disease No Carrie Tapia MA Weekly blood pressure task Care Plan Weekly blood pressure task No Carrie Tapia MA Weekly blood pressure task Care Plan Weekly blood pressure task No Carrie Tapia [place] Patient has chronic kidney disease Care Plan Patient has chronic kidney disease No Carrie Tapia [place] Patient has chronic kidney disease Care Plan Patient has chronic kidney disease No Carrie Tapia [place] Weekly blood pressure task Care Plan Weekly blood pressure task No Senia Fraser RN Weekly blood pressure task Care Plan Weekly blood pressure task No Senia rFaser, ETHAN Patient has chronic kidney disease Care Plan Patient has chronic kidney disease No Senia Fraser RN Patient has chronic kidney disease Care Plan Patient has chronic kidney disease No Senia Fraser RN documented as of this encounter Procedures Procedure Name Priority Date/Time Associated Diagnosis Comments POCT GLYCATED HEMOGLOBIN, TOTAL Routine 10/16/2025 3:29 PM EST Type 2 diabetes mellitus without complication, without long-term current use of insulin (HCC) POCT GLUCOSE Routine 10/16/2025 3:21 PM EST Type 2 diabetes mellitus without complication, without long-term current use of insulin (HCC) documented in this encounter Results * (ABNORMAL) POCT Hgb A1c (10/16/2025 3:29 PM EST) Hemoglobin A1C 6.6(A) 4.0 - 5.7 % QC Media Lot # [id number] Lot# Expiration Date ,027 Blood 10/16/2025 3:29 PM EST Nabeel Coombs MD POINT OF CARE TEST EN TER/EDIT ORDERABLES Final Result * (ABNORMAL) POCT Glucose (10/16/2025 3:21 PM EST) Glucose Blood, POC 205(A) 60 - 200 mg/dL QC Media Lot # [id number] Lot# Expiration Date Blood Capillary blood specimen / Unknown 10/16/2025 3:21 PM EST Nabeel Coombs MD POINT OF CARE TEST EN TER/EDIT ORDERABLES Final Result documented in this encounter Visit Diagnoses Diagnosis Moderate dementia with agitation, unspecified dementia type (CMS/HCC) (HCC)- Primary Type 2 diabetes mellitus without complication, without long-term current use of insulin (HCC) Essential hypertension Unspecified essential hypertension Acute gastritis without hemorrhage, unspecified gastritis type Constipation, unspecified constipation type Stress incontinence of urine Encounter for immunization documented in this encounter Additional Health Concerns Active Problems Noted Date Diagnosed Date Help patients manage their type 2 diabetes 10/12 Weekly blood pressure task 10/12/2025 Help patients manage their type 2 diabetes 10/12 Patient has chronic kidney disease 10/12/2025 Weekly blood pressure task 10/12/2025 Patient has chronic kidney disease 10/12/2025 Weekly blood pressure task 10/15/2025 Weekly blood pressure task 10/15/2025 Patient has chronic kidney disease 10/15/2025 Patient has chronic kidney disease 10/15/2025 Weekly blood pressure task 10/15/2025 Weekly blood pressure task 10/15/2025 Patient has chronic kidney disease 10/15/2025 Patient has chronic kidney disease 10/15/2025 Weekly blood pressure task 10/16/2025 Weekly blood pressure task 10/16/2025 Patient has chronic kidney disease 10/16/2025 Patient has chronic kidney disease 10/16/2025 Assessment Noted Time PHQ-9 Depression Total Score: 3 08/29/20 24 10:01 AM EDT documented as of this encounter Care Teams Executive Communications Manager Relationship Specialty Start Date End Date Nabeel Aldana MD [address] [place] [id number] PCP - General Internal Medicine 07/10/14 Santi Arellano DPM [address] [place] [address] Podiatry 02/01/25 documented as of this encounter
--- NOTE | ~2025-10-18 | MM_ITS ---
EXAMINATION: MM SCREENING DIGITAL BREAST TOMOSYNTHESIS, BILATERAL CLINICAL INFORMATION: Screening. Asymptomatic. COMPARISON: Mammography: Comparison is made with available priors TECHNIQUE: Digital breast mammography with tomosynthesis is performed in both the craniocaudal and mediolateral oblique views along with computer-aided detection (CAD). FINDINGS: There are scattered areas of fibroglandular density. Bilateral diffusely scattered benign secretory calcifications are stable. There are no significant masses, abnormal calcifications, or other abnormalities. MM/MM tomosynthesis screening BI IMPRESSION: No mammographic evidence of malignancy. ASSESSMENT: BI-RADS Category 2: Benign RECOMMENDATION: Routine annual mammography screening. 1 year F/U This examination should not preclude the clinical evaluation of a suspicious palpable abnormality. This patient's information was entered into a reminder system with a target due date for their next mammogram. Electronically signed by: Zenia Costa DO 10/19/2025 04:07 PM STACIE
--- OUTSIDE RECORDS SUMMARY | 2025-10-18 20:51 | XMS_ITS | Encounter Summary ---
Author Organization [employer] Address [address] [facility] [address] [place] [address] Care Team Providers Care Transfer Machine Operator Name Role Phone Nabeel Aldana MD Primary Care Provide r Santi Arellano DPM Unavailable [phone] Reason for Visit * Reason Onset Date Comments Reschedule 11/24/2023 Encounter Details Date Type Department Care Team ([facility] st Contact Info) Description 11/24/2023 Telephone [facility] [address] [place], [place] [phone] Nabeel Aldana MD [address] [place], [place] [phone] Reschedule Social History Tobacco Use Types Packs/Day [...] (son) requesting r/s 11/11/2023 OV with PCP, signwriter attempted to r/s no availability for November. documented in this encounter Plan of Treatment Not on file documented as of this encounter Visit Diagnoses Not on filedocumented in this encounter Additional Health Concerns Assessment Noted Time PHQ-9 Depression Total Score: 0 07/08/20 23 3:11 PM EDT documented as of this encounter Care Teams Transfer Machine Operator Relationship Specialty Start Date End Date Nabeel Aldana MD [address] [place] [address] PCP - General Internal Medicine 07/10/14 Santi Arellano DPM [address] [address] Podiatry 02/01/25 documented as of this encounter
--- OUTSIDE RECORDS SUMMARY | 2025-10-18 20:51 | XMS_ITS | Encounter Summary ---
Author Organization [employer] Address [address] [facility] [address] [place] [address] Care Team Providers Care Solvent Plant Treater Name Role Phone Nabeel Aldana MD Primary Care Provide r Santi Arellano DPM Unavailable [phone] Encounter Details Date Type Department Care Team ([facility] Contact Info) Description 02/24/2024 Telephone [facility] [address] [place], [place] [phone] Nabeel Aldana MD [address] [place], [place] [phone] Social History Tobacco Use Types Packs/Day Years [...] as of this encounter Plan of Treatment Not on file documented as of this encounter Visit Diagnoses Not on filedocumented in this encounter Additional Health Concerns Assessment Noted Time PHQ-9 Depression Total Score: 0 07/08/20 23 3:11 PM EDT documented as of this encounter Care Teams Solvent Plant Treater Relationship Specialty Start Date End Date Nabeel Aldana MD [address] [place] [address] PCP - General Internal Medicine 07/10/14 Santi Arellano DPM [address] [address] Podiatry 02/01/25 documented as of this encounter
--- OUTSIDE RECORDS SUMMARY | 2025-10-18 20:51 | XMS_ITS | Encounter Summary ---
Author Organization [employer] Address [address] [address] [facility] [address] [place] [address] Care Team Providers Care Rolloff Truck Driver Name Role Phone Nabeel Aldana MD Primary Care Provide r Santi Arellano DPM Unavailable [phone] Reason for Visit * Reason Onset Date Comments Durable Medical Equipment 10/16/2025 Encounter Details Date Type Department Care Team (Late st Contact Info) Description 10/16/2025 Telephone [facility] [address] [place], [place] [phone] Senia Herrera RN [address] [place], [place] [phone] Durable Medical Equipment Social History Tobacco Use [...] encounter Miscellaneous Notes * Telephone Encounter - Senia Herrera RN - 10/16/2025 3:48 PM EST Per PCP in OV, pt needs DME bed pads. Spoke with daughter who requested disposable bed pads. Pt with urinary incontinence, unsteady gait, and dementia, in bed or in chair most of the day. Script generated and placed on PCP's desk. Pending signature. documented in this encounter Plan of Treatment Not on file documented as of this encounter Goals Goal Patient Goal Type Associated Problems Recent Progress Patient-Stated? Author Help patients manage their type 2 diabetes Care Plan Help patients manage their type 2 diabetes No John Ziegler, PharmBraulio Weekly blood pressure task Care Plan Weekly blood pressure task No John Ziegler, PharmBraulio Help patients manage their type 2 diabetes Care Plan Help patients manage their type 2 diabetes No John Ziegler, PharmBraulio Patient has chronic kidney disease Care Plan [...] Plan Weekly blood pressure task No Senia Herrera RN Weekly blood pressure task Care Plan Weekly blood pressure task No Senia Herrera RN Patient has chronic kidney disease Care Plan Patient has chronic kidney disease No Senia Herrera RN Patient has chronic kidney disease Care Plan Patient has chronic kidney disease No Senia Herrera RN documented as of this encounter Visit Diagnoses Not on filedocumented in this encounter Additional Health Concerns Active [...] documented as of this encounter Care Teams Rolloff Truck Driver Relationship Specialty Start Date End Date Nabeel Aldana MD [address] [place] [address] PCP - General Internal Medicine 07/10/14 Santi Arellano DPM [address] [place] [id number] Podiatry 02/01/25 documented as of this encounter
--- OUTSIDE RECORDS SUMMARY | 2025-10-18 20:51 | XMS_ITS | Clinical Summary ---
Author Organization [address] [place] [address] Address [address] [place] [address] Phone Care Team Providers Care Bar Steward Name Role Phone Nabeel Elizabeth MD Primary Care Provi doe Allergies Active Allergy Reactions Criticality Noted Date Comments Amoxicillin Trihydrate 10/12/2008 Medications amLODIPine (NORVASC) 2.5 mg tablet Take 2.5 mg by mouth daily. Active atenoloL (TENORMIN) 25 mg tablet Take 1 tablet (25 mg total) by mouth 1 (one) time each day. Active omega-3 acid ethyl esters (LOVAZA) 1 gram capsule Take 1 capsule (1,000 mg total) by mouth 1 (one) time each day. Active furosemide (LASIX) 20 mg tablet Take 1 tablet (20 mg total) by mouth 1 (one) time each day. Active gabapentin (NEURONTIN) 100 mg capsule Take 100 mg by mouth daily. Active magnesium gluconate (MAGONATE) 27.5 mg magne- sium (500 mg) tablet Take 500 mg by mouth daily. Active senna (SENOKOT) 8.6 mg tablet Take 1-2 tablets by mouth daily. Active UNABLE TO FIND Take by mouth. Calcium Carbonate-Vi tamin D (CALCIUM + D OR) Active tramadol HCl (TRAMADOL ORAL) Take 50 mg by mouth 4 times daily. Active aspirin 81 mg EC tablet Take 1 tablet (81 mg total) by mouth 1 (one) time each day. Active atorvastatin (Lipitor) 40 mg tablet 1 TABLET DAILY Active atenoloL-chlort halidone (TENORETIC) 100-25 mg per tablet 1 TABLET DAILY Active multivitamin (DAILY-ALLY ORAL) DAILY Active metFORMIN (Glumetza) 500 mg 24 hr tablet EVERY 12 HRS A ctive Active Problems Problem Noted Date Diagnosed Date Hyperlipidemia with target LDL less than 70 0707/2013 Overview (10/20/2024): IMO update DM (diabetes mellitus) ([facility] V24, [facility] V28 ) 11/07/2008 HTN (hypertension) 11/07/2008 Osteoporosis 11/07/2008 Surgical History Surgery Date Site/Laterality Comments COLONOSCOPY 12/31/06 PROCEDURE: DE COLONOSCOPY STOMA DX INCLUDING COLLJ SPEC SPX; COMMENT: Dr. Donaldson, at [facility]. Nl (no report available) ESOPHAGOGASTRODUODENOSCOPY 11/08/08 PROCEDURE: DE EGD TRANSORAL BIOPSY SINGLE/MULTIPLE; COMMENT: Nl esophagus-bx:Nl, some bile in stomach, nl stomach-bx:mild reactive gastropathy, nl duodenum EYE SURGERY PROCEDURE: HISTORICAL EYE SURGERY Medical History Medical History Date Comments Historical Medical DX 06/06/2013 DX:Hyperli pidemia LDL goal < 70 Family History Medical History Relation Name Comments Heart attack Other sibbiling, age 59 Heart attack Sister Relation Name Status Comments Father Mother Other Sister Social History Tobacco Use Types Packs/Day Years Used Date Smoking Tobacco: Former Smokeless Tobacco: Never Alcohol Use Standard Drinks/Week Comments Not Asked 0 (1 standard drink = 0.6 oz pur e alcohol) Comments Unknown Sex and Gender Information Value Date Recorded Sex Assigned at Not on file Legal Sex Female 12:52 PM EST Gender Identity Not on file Sexual Orientation Not on file Obstetrics History Plan of Treatment Upcoming Encounters Date Type Department Care Team (Late st Contact Info) Description 10/22/2025 3:00 PM EST Office Visit Orthopedic Surgery - [place] [address] [address] Santi Arellano, DPM [address] [address] Health Maintenance Due Date Last Done Comments Diabetes: Annual Foot Exam 1949 Diabetes: Annual Retina Eye Exam 1949 DTaP,Tdap,and Td Vaccines (1 - Tdap) 1958 Pneumococcal Vaccine: 50+ Ye ars (1 of 2 - PCV) 1958 Zoster Vaccines (1 of 2) 1989 RSV Immunization Adult Patie nts (1 - 1-dose 75+ series) 2014 Cholesterol Screening (Lipid Panel) 11/08/2022 Falls Risk Assessment 11/08/2022 Social Influencers of Health Screening 11/08/2022 Diabetes: Blood Sugar Contro l Test (HGBA1C) 11/13/2022 Hypertension/CHF/CAD Annual BMP Blood Test 11/13/2022 Depression Screening 11/29/2024 COVID-19 Vaccine (1 - 2024-2 6 season) 2025 Influenza Vaccine (#1) 2025 Osteoporosis Screening (Bone Density Screening) 02/06/2030 02/07/2020 HIB Vaccines Aged Out No longer eligi [...] on patient's age to complete this topic MMR Vaccines Aged Out No longer eligi ble based on patient's age to complete this topic Meningococcal ACWY Vaccine Aged Out N o longer eligible based on patient's age to complete this topic Meningococcal B Vaccine Aged Out No l onger eligible based on patient's age to complete this topic RSV Immunization Patients Un doe 20 months Aged Out No longer eligible b ased on patient's age to complete this topic Varicella Vaccines Aged Out No longer eligible based on patient's age to complete this topic Procedures Procedure Name Priority Date/Time Associated Diagnosis Comments [facility] DEXA AXIAL SKELETON Routine 02/07/2020 11:38 AM EDT Encounter for screening for osteoporosis from Last 3 Months or Most Recently Relevant to Health Maintenance Results * [facility] DEXA AXIAL SKELETON (02/07/2020 11:38 AM EDT) Anatomical Region Laterality Modality Mammography 02/07/2020 10:1 5 AM EDT Narrative 02/07/2020 11:38 AM EDT [facility] Diagnostic Imaging Department [address] [place] [address] Patient: DAMIEN DIOR /Age/Sex: 1940 - 79 - F Unit#: [id number] Location/Status: SPDIMAM/REG CLI Mnemonic/Ordering Site: MAMDEXAAX/SPMAM Ordering Physician: MIKE BERNAL CNM [facility] Dexa Axial Skeleton - 02/07/201119 HISTORY: The patient is an 79-year-old postmenopausal female with clinical concern for metabolic bone disease. FINDINGS: Dual energy x-ray absorptiometry of the lumbar spine and femurs is performed. The mean bone mineral density at L1-2 is 1.068 gm/cm2 which is 92% of that of young normals and 120% of that of age matched controls. This yields a T- score of -0.8 and a Z-score of 1.5 and there is therefore no evidence of osteoporosis or osteopenia here. The mean bone mineral density of the femurs bilaterally is 0.951 gm/cm2 which is 94% of that of young normals and 134% of that of age matched controls. This yields a T-score of -0.4 and a Z-score of 1.9 and there is therefore no evidence of osteoporosis or osteopenia here. IMPRESSION: 1. There is no evidence of osteoporosis or osteopenia. There has been a decrease of 3.3% in bone mineral density in the lumbar spine since the prior examination of 03/06/2013. There has been a decrease of 10.1% in bone mineral density in the right femur and a decrease of 11.4% in bone mineral density in the left femur. 2. FRAX analysis yields a 10-year probability of major osteoporotic fracture of 7.8% and a 10-year probability of hip fracture of 1.2%. Code 79013 Dictating Physician: MIRYAM GUADALUPE MD Electronically Signed by: MIRYAM GUADALUPE MD Dic Date/Time: 02/07/201136 Sign date/Time: 02/07/201137 Procedure Note Miryam Guadalupe - 11/17/2022 [facility] Diagnostic Imaging Department [address] [place] [address] Patient: DIORDAMIEN./Age/Sex: 1940 - 79 - F Unit#: [id number] Location/Status: [facility] Ordering Physician: MIKE BERNAL CNM [facility] Dexa Axial Skeleton - 02/07/201119 HISTORY: The patient is an 79-year-old postmenopausal female withclinical concern for metabolic bone disease. FINDINGS: Dual energy x-ray absorptiometry of the lumbar spine and femursis performed. The mean bone mineral density at L1-2 is 1.068 gm/cm2 which is92% of that of young normals and 120% of that of age matched controls. Thisyields a T- score of -0.8 and a Z-score of 1.5 and there is therefore no evidence of osteoporosis or osteopenia here. The mean bone mineral density of the femurs bilaterally is 0.951 gm/wi8fuhwi is 94% of that of young normals and 134% of that of age matched controls.This yields a T-score of -0.4 and a Z-score of 1.9 and there is therefore noevidence of osteoporosis or osteopenia here. IMPRESSION: 1. There is no evidence of osteoporosis or osteopenia. There has been a decrease of 3.3% in bone mineral density in the lumbar spine since theprior examination of 03/06/2013. There has been a decrease of 10.1% in bonemineral density in the right femur and a decrease of 11.4% in bone mineral densityin the left femur. 2. FRAX analysis yields a 10-year probability of major osteoporoticfracture of 7.8% and a 10-year probability of hip fracture of 1.2%. Code 10905 Dictating Physician: MIRYAM GUADALUPE MD Electronically Signed by: MIRYAM GUADALUPE MD Dic Date/Time: 02/07/20 1137 Sign date/Time: 02/07/20 1138 Mike THOMAS IM BI PROCEDURES Final Resul t from Last 3 Months or Most Recently Relevant to Health Maintenance Insurance MEDICAID - [place] Care Teams Bar Steward Relationship Specialty Start Date End Date Nabeel Elizabeth MD [address] [place] [address] [place] [address] PCP - General Internal Medicine 09/21/14
--- OUTSIDE RECORDS SUMMARY | 2025-10-18 20:51 | XMS_ITS | Encounter Summary ---
Author Organization [employer] Address [address] [place] [address] Care Team Providers Care Food Service Attendant Name Role Phone Nabeel Aldana MD Primary Care Provide r Santi Arellano DPM Unavailable Reason for Visit * Reason Onset Date Comments chart prep 10/15/2025 Encounter Details Date Type Department Care Team ([facility] st Contact Info) Description 10/15/2025 Telephone [facility] MEDICINE [address] [place], [place] [phone] Nabeel Aldana MD [address] [place], [place] [phone] chart prep Social History Tobacco Use Types Packs/Day Years [...] encounter Miscellaneous Notes * Telephone Encounter - Carrie Tapia [place] - 10/15/2025 11:43 AM EST ..Chart Prep Labs: not applicable Images: not applicable Vaccines due: Covid Due and Flu Due Referrals: Sleep Medicine Pending appointment on 04/02/26 Screenings: [id number]/20/25 Overdue care gaps: A1C, Glucose, SDOH, PHQ9, and GAD7 documented in this encounter Plan of Treatment Not on file documented as of this encounter Goals Goal Patient Goal Type Associated Problems Recent Progress Patient-Stated? Author Help patients manage their type 2 diabetes Care Plan Help patients manage their type 2 diabetes No John Ziegler, PharmD Weekly blood pressure task Care Plan Weekly blood pressure task No John Ziegler, PharmD Help patients manage their type 2 diabetes Care Plan Help patients manage their type 2 diabetes No John Ziegler, Ivan Patient has chronic kidney disease Care Plan Patient has chronic kidney disease No John Ziegler PharmD Weekly blood pressure task Care Plan Weekly blood pressure task No John Ziegler PharmBraulio Patient has chronic kidney disease Care [...] chronic kidney disease No Carrie Tapia MA documented as of this encounter Visit Diagnoses [...] 10/15/2025 Patient has chronic kidney disease 10/15/2025 Assessment Noted Time PHQ-9 Depression Total Score: 3 08/29/20 24 10:01 AM EDT documented as of this encounter Care Teams Food Service Attendant Relationship Specialty Start Date End Date Nabeel Aldana MD [address] [place] [id number] PCP - General Internal Medicine 07/10/14 Santi Arellano DPM [address] [address] Podiatry 02/01/25 documented as of this encounter
--- OUTSIDE RECORDS SUMMARY | 2025-10-18 20:51 | XMS_ITS | Encounter Summary ---
Author Organization [employer] Address [address] [facility] [address] [place] [address] Care Team Providers Care Wireless Retail Manager Name Role Phone Nabeel Aldana MD Primary Care Provide r Santi Arellano DPM Unavailable [phone] Reason for Visit * Reason Comments Med Refill Encounter Details Date Type Department Care Team (Late st Contact Info) Description 09/29/2023 Telephone [facility] MEDICINE 230 [place], [place] [phone] Nabeel Aldana MD 230 [place], [place] [phone] Med Refill Social History Tobacco Use Types [...] documented as of this encounter Care Teams Wireless Retail Manager Relationship Specialty Start Date End Date Nabeel Aldana MD 230 [place] [address] PCP - General Internal Medicine 07/10/14 Santi Arellano DPM [address] [address] Podiatry 02/01/25 documented as of this encounter
--- OUTSIDE RECORDS SUMMARY | 2025-10-18 20:51 | XMS_ITS | Encounter Summary ---
Author Organization [employer] Address [address] [facility] [place] [address] Care Team Providers Care Wage And Salary Specialist Name Role Phone Nabeel Aldana MD Primary Care Provide r Santi Arellano DPM Unavailable [phone] Encounter Details Date Type Department Care Team (Latest Contact Info) Description 10/16/2025 Travel Social History Tobacco Use Types Packs/Day Years [...] manage their type 2 diabetes No John Ziegler PharmD Weekly blood pressure task Care Plan Weekly blood pressure task No John Ziegler PharmD Help patients manage their type 2 [...] Plan Weekly blood pressure task No Senia Herrera, RN Weekly blood pressure task Care Plan Weekly blood pressure task No Senia Herrera, ETHAN Patient has chronic kidney disease Care Plan Patient has chronic kidney disease No Senia Herrera RN Patient has chronic kidney disease Care Plan Patient has chronic kidney disease No Senia Herrera, ETHAN documented as of this encounter Visit Diagnoses [...] documented as of this encounter Care Teams Wage And Salary Specialist Relationship Specialty Start Date End Date Nabeel Aldana MD [address] [place] [address] PCP - General Internal Medicine 07/10/14 Santi Arellano DPM [address] [place] [phone] Podiatry 02/01/25 documented as of this encounter
--- OUTSIDE RECORDS SUMMARY | 2025-10-18 20:51 | XMS_ITS | Encounter Summary ---
Author Organization [employer] Address [address] [place] [address] Care Team Providers Care Interventional Physiatrist Name Role Phone Nabeel Aldana MD Primary Care Provide r Santi Arellano DPM Unavailable [phone] Encounter Details Date Type Department Care Team (Late st Contact Info) Description 12/22/2022 Orders Only [facility] MEDICINE [address] [place] [address] Domingo Ramey, ElanD Social History Tobacco Use [...] on file documented as of this encounter Procedures Procedure Name Priority Date/Time Associated Diagnosis Comments OTHER REF TEST - MISC Routine 07/05/2023 2:54 PM EDT LIPID PANEL, STANDARD Routine 07/05/2023 2:54 PM EDT documented in this encounter Results * Other Reference Test - Misc (07/05/2023 2:54 PM EDT) Other Ref Test Misc SEE NOTE [facility] Comment:ALBUMIN, RANDOM URIN E W/O CREATININE: [...] be within a diagnostic category. Site Information: [employer] [address] [place] [phone] Lung Puller: Comfort Addison M.D. 07/05/2023 2:54 PM EDT 07/06/2023 8:04 AM EDT Narrative [facility] - 07/09/2023 1:24 PM EDT ALBUMIN, RANDOM URINE W/O CREATININE Nabeel Coombs MD LAB BLOOD ORDERABLES Final Result [facility] [address] [place] [phone] * Lipid Panel, Standard (07/05/2023 2:54 PM EDT) Triglycerides 147 mg/dL [facility] Comment:Desirable Triglyceri de: less than 150 mg/dLBorderline High Triglyceride 150-199 mg/dLHigh Triglyceride: 200-499 mg/dLVery High Triglyceride: greater than or equal to 5OO mg/dL Cholesterol 137 mg/dL [facility] Comment:Desirable Cholestero l: less than 200 mg/dLBorderline High Cholesterol: 200-239 mg/dLHigh Cholesterol: greater than 239 mg/dL LDL Cholesterol Calculated 56 mg/dl [facility] Comment:Desirable LDL: less than 100 mg/dLNear Optimal/Above Optimal LDL: 110- 129 mg/dLBorderline High LDL: 130-159 mg/dLHigh LDL: 160-189 mg/dLVery High LDL: greater than or equal to 190 mg/dL HDL Cholesterol 52 mg/dL [facility] Comment:Desirable HDL: great er than 40 mg/dL Note: This HDL assay may give artificially low results in patients with liver disease. 07/05/2023 2:54 PM EDT 07/05/2023 4:17 PM EDT Nabeel Coombs MD LAB BLOOD ORDERABLES Final Result [facility] [address] [place] [phone] documented in this encounter Visit Diagnoses Not on filedocumented in this encounter Care Teams Interventional Physiatrist Relationship Specialty Start Date End Date Nabeel Aldana MD [address] [place] [phone] PCP - General Internal Medicine 07/10/14 Santi Arellano DPM [address] [place] [phone] Podiatry 02/01/25 documented as of this encounter
--- OUTSIDE RECORDS SUMMARY | 2025-10-18 20:52 | XMS_ITS | Encounter Summary ---
Author Organization [employer] Address [address] [facility] [address] [place] [address] Care Team Providers Care Back End Developer Name Role Phone Nabeel Aldana MD Primary Care Provide r Santi Arellano DPM Unavailable Encounter Details Date Type Department Care Team (Late st Contact Info) Description 10/12/2025 Refill [facility] MEDICINE [address] [place], [place] [phone] Nabeel Aldana MD [address] [place], [place] [phone] Essential hypertension Social History Tobacco Use Types Packs/Day Years [...] their type 2 diabetes No John Ziegler PharmBraulio Patient has chronic kidney disease Care Plan Patient has chronic kidney disease No John Ziegler PharmBraulio Weekly blood pressure task Care Plan Weekly blood pressure task No John Ziegler PharmBraulio Patient has chronic kidney disease Care Plan Patient has chronic kidney disease No John Ziegler PharmD documented as of this encounter Visit Diagnoses Diagnosis Essential hypertension Unspecified essential hypertension documented in this encounter Additional Health Concerns Active Problems Noted Date Diagnosed Date Help patients manage their type 2 diabetes 10/12 Weekly blood pressure task 10/12/2025 Help patients manage their type 2 diabetes 10/12 Patient has chronic kidney disease 10/12/2025 Weekly blood pressure task 10/12/2025 Patient has chronic kidney disease 10/12/2025 Assessment Noted Time PHQ-9 Depression Total Score: 3 08/29/20 24 10:01 AM EDT documented as of this encounter Care Teams Back End Developer Relationship Specialty Start Date End Date Nabeel Aldana MD [address] [place] [address] PCP - General Internal Medicine 07/10/14 Santi Arellano DPM [address] [address] Podiatry 02/01/25 documented as of this encounter
--- OUTSIDE RECORDS SUMMARY | 2025-10-18 20:52 | XMS_ITS | Patient Health Record ---
Author Organization [employer] Address [address] [place] [phone] Care Team Providers Care Lead Cargo Mover Name Role Phone Damon Dorado Unavailable [phone] Reason For Referral No Information Plan Of Treatment No Information
--- OUTSIDE RECORDS SUMMARY | 2025-10-18 20:52 | XMS_ITS | Encounter Summary ---
Author Organization [employer] Address [address] [facility] [facility] [address] [place] [address] Care Team Providers Care Supervisor Mill Name Role Phone Nabeel Aldana MD Primary Care Provide r Santi Arellano DPM Unavailable [phone] Reason for Visit * Reason Onset Date Comments Durable Medical Equipment 07/19/2024 Encounter Details Date Type Department Care Team (Late st Contact Info) Description 07/19/2024 Telephone [facility] MEDICINE 230 [place], [place] [phone] Nabeel Aldana MD 230 [place], [place] [phone] Durable Medical Equipment Social History Tobacco Use [...] 12:52 PM EDT Tc from [facility] with [facility] informing that they received fax for incontinence [...] documented as of this encounter Care Teams Supervisor Mill Relationship Specialty Start Date End Date Nabeel Aldana MD [address] [place] [address] PCP - General Internal Medicine 07/10/14 Santi Arellano DPM [address] [address] Podiatry 02/01/25 documented as of this encounter
--- OUTSIDE RECORDS SUMMARY | 2025-10-18 20:52 | XMS_ITS | Clinical Summary ---
Author Organization [employer] Address [address] [facility] [address] [place] [address] Care Team Providers Care Founder President And Ceo Name Role Phone Nabeel Aldana MD Primary Care Provide r Santi Arellano DPM Unavailable [phone] Allergies Active Allergy Reactions Criticality Noted Date [...] 11/16/20 23 Active Diclofenac Sodium 1 % gelIndications:C hronic midline low back pain without sciatica Apply to affected joint twice daily PRN 50 g 1 02/02/20 25 Active fluticasone (Flonase) 50 MCG/ACT nasal spray INSTILL 1 SPRAY IN EACH NOSTRIL ONCE DAILY 16 g 5 07/03/20 25 Active gabapentin (Neurontin) 100 MG capsuleIndicatio ns:Chronic midline low back pain without sciatica TAKE 1 CAPSULE BY MOUTH AT BEDTIME 30 capsule 5 08/02/20 25 Active amLODIPine (Norvasc) 2.5 MG tabletIndication s:Type 2 diabetes mellitus without complication, unspecified whether prison insulin use TAKE 1 TABLET BY MOUTH EVERY MORNING 90 tablet 1 08/02/20 25 Active atorvastatin (Lipitor) 40 MG tabletIndication s:Type 2 diabetes mellitus without complication, unspecified whether prison insulin use TAKE 1 TABLET BY MOUTH AT BEDTIME 90 tablet 1 08/02/20 25 Active cholecalciferol (Vitamin D-3) 125 MCG (5000 UT) tabletIndication s:Low vitamin D level TAKE 1 TABLET BY MOUTH EVERY MORNING 90 tablet 1 08/02/20 25 Active hydroCHLOROthiaz aida 12.5 MG tabletIndication s:Type 2 diabetes mellitus without complication, unspecified whether buttermaker insulin use TAKE 1 TABLET BY MOUTH EVERY MORNING 90 tablet 1 08/02/20 25 Active metFORMIN XR (Glucophage-XR) 500 MG 24 hr tabletIndication s:Type 2 diabetes mellitus without complication, unspecified whether prison insulin use TAKE 1 TABLET BY MOUTH EVERY MORNING WITH BREAKFAST 90 tablet 1 08/02/20 25 Active atenolol (Tenormin) 25 MG tablet TAKE 1/2 TABLET BY MOUTH EVERY MORNING 45 tablet 1 08/02/20 25 Active losartan (Cozaar) 100 MG tabletIndication s:Type 2 diabetes mellitus without complication, unspecified whether buttermaker insulin use TAKE 1 TABLET BY MOUTH EVERY MORNING 90 tablet 1 08/02/20 25 Active Oyster Shell Calcium 500 MG tabletIndication s:Chronic midline low back pain without sciatica TAKE 1 TABLET BY MOUTH EVERY MORNING 90 tablet 1 09/06/20 25 Active cetirizine (ZyrTEC) 10 MG tabletIndication s:Essential hypertension TAKE 1 TABLET BY MOUTH EVERY MORNING 30 tablet 5 2:42 PM EST 10/12/20 25 Active Omeprazole 20 MG tablet delayed-releaseI ndications:Acute gastritis without hemorrhage, unspecified gastritis type Take 1 tablet (20 mg) by mouth Once per day. 30 tablet 3 10/16/20 25 Active docusate sodium (Colace) 100 MG capsuleIndicatio ns:Constipation, unspecified constipation type Take 1 capsule (100 mg) by mouth 2 times daily. 20 capsule 3 4:50 PM EST 10/16/20 Active cetirizine (ZyrTEC) 10 MG tabletIndication s:Essential hypertension Take 1 tablet (10 mg) by mouth in the morning. 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 Repeat BMP Assessment & Plan (02/01/2025 11:46 AM EST): [...] (08/29/2024 10:08 AM EDT): last ECHO from [facility] done on 09/09/2016 showed moderate to severe Tricuspid regurgitation unchanged from previous. Assessment & Plan (07/08/2023 3:36 PM EDT): Most recent ECHO from [facility] done on 09/09/2016 showed moderate to severe Tricuspid regurgitation unchanged from previous. Chronic low back pain 09/19/2012 Assessment & Plan (02/01/2025 12:02 PM EST): Pt tamika Has a Hx of chronic low back pain, treated in the past by a local derrick engineer Dr Wren with epidural injections with good results.. MRI done at [facility] 10/27/2009 showed a complex disc bulge at the level of L4-L5 which I suspected was causing her symptoms. In the past she was seen at [facility] and last visit she told me she wanted to go back for consideration of epidural injections. She was seen on 12/05/2012 and given an epidural injections with excellent results. She had been under the care of Dr. Marquez who had prescribed Tramadol and gabapentin. Pt no longer sees Dr. Marquez. No longer taking Tramadol since 2022 per [facility] Plan; Start Tylenol arthritis and Diclofenac Last visit we requested a positioning bed Assessment & Plan (08/29/2024 10:09 AM EDT): Pt tamika Has a Hx of chronic low back pain, treated in the past by a local derrick engineer Dr Wren with epidural injections with good results.. MRI done at [facility] 10/27/2009 showed a complex disc bulge at the level of L4-L5 which I suspected was causing her symptoms. In the past she was seen at [facility] and last visit she told me she wanted to go back for consideration of epidural injections. She was seen on 12/05/2012 and given an epidural injections with excellent results. she continues on Tramadol and gabapentin. Last visit we requested a positioning bed Assessment & Plan (07/08/2023 3:38 PM EDT): Pt with chronic low back pain, treated in the past by a local derrick engineer Dr Wren with epidural injections with good results.. MRI done at [facility] 10/27/2009 showed a complex disc bulge at the level of L4-L5 which I suspected was causing her symptoms. In the past she was seen at [facility] and last visit she told me she [...] mellitus, type II 04/20/2012 Assessment & Plan (10/16/2025 3:23 PM EST): Patient is here for a [...] 4 month follow up Assessment & Plan (02/01/2025 12:02 PM EST): [...] Encounters Date Type Department Care Team Description 10/16/2025 3:00 PM EST Office Visit [facility] [address] [place] [address] Nabeel Aldana MD Moderate dementia with agitation, unspecified dementia type (CMS/HCC) (HCC) (Primary Dx); Type 2 diabetes mellitus without complication, without long-term current use of insulin (HCC); Essential hypertension; Acute gastritis without hemorrhage, unspecified gastritis type; Constipation, unspecified constipation type; Stress incontinence of urine; Encounter for immunization 10/16/2025 Telephone [facility] [address] [place] [address] Senia Herrera, RN Durable Medical Equipment 10/16/2025 Travel 10/15/2025 Telephone [facility] [address], [place] [phone] Nabeel Aldana MD chart prep 10/12/2025 Refill [facility] [address], [place] [phone] Nabeel Aldana MD Essential hypertension 10/12/2025 Refill [facility] [address] [place] [address] Nabeel Aldana MD Essential hypertension 09/11/2025 Refill [facility] [address] [place] [address] Nabeel Aldana MD Essential hypertension 09/05/2025 Refill [facility] [address] [place] [address] Nabeel lAdana MD Chronic midline low back pain without sciatica 08/02/2025 Refill [facility] [address] [place] [address] Nabeel Aldana MD Chronic midline low back pain without sciatica; Essential hypertension; Type 2 diabetes mellitus without complication, unspecified whether prison insulin use ([facility]); Low vitamin D level from Last 3 Months Immunizations Immunization Administration Dates Next Due Influenza High-dose Quadriva lent Preservative Free 09/01/2022,09/02/2021,08/27/2020 Influenza injectable quadriv alent IIV4 with preservative 09/15/2016 Influenza injectable quadriv alent preservative free 09/02/2015 Influenza, High Dose Seasona l, Preservative Free 10/16/2025,08/29/2024,10/11/2018,11/18 Influenza, IIV3, injectable 08/09/2014,1 ,08/07/2010,12/09 Influenza, Split (incl. anabell fied surface antigen) 08/28/2013,09/19/2012 Influenza, trivalent, adjuvanted 08/10/2019 Pfizer Covid-19 Vaccine 12+ 10/16/2025,1 ,08/28/2021,01/04,12/14/2020 Pfizer Covid-19 Vaccine 12+ Bivalent 09/01/2022 Pneumococcal Conjugate PCV 13 11/26/2015 Pneumococcal Conjugate PCV 7 04/03/2011 Pneumococcal Polysaccharide PPSV23 01/19/2014 TD (adult), 2 Lf tetanus tox oid, preservative free, adsorbed 01/08/2015,10/04/1997 Tdap 09/01/2022 Zoster, live 01/19/2014 Social History Tobacco Use Types Packs/Day Years Used Date Smoking Tobacco: Never Passive Smoke Exposure: Never Smokeless Tobacco: Never Tobacco Cessation:Counseling Given: Not Answered Alcohol Answer Date Recorded How often do [...] Mass Index 25.25 10/16/2025 3:19 PM EST Plan of Treatment Health Maintenance Due Date Last Done Comments [...] Screening 06/02/2025 06/02/2024 Mammogram 07/18/2025 07/18/2024, 06/17/2023 Depression Screening 08/29/2025 08/29/2024, 08/29/20 24 Lipid Panel 08/30/2025 08/30/2024, 08/05/2023, 04/06/2022 Alcohol/Substance Use Screening 02/01/2026 02/01/2025 COVID-19 Vaccine ( season) 2026 10/16/2025, 08/29/2024, 09/01/2022, Additional history exists Diabetes: Hemoglobin A1C 04/15/2026 025, 02/01/2025, 08/29/2024, Additional history exists Tobacco Screening 10/16/2026 10/16/2025 Eye Exam 11/03/2026 11/03/2024, 1204/2024, 11/03/2024, Additional history exists Dental X-Ray: Full Mouth 07/19/2027 024, 11/06/2015, 02/06/2010 DTaP/Tdap/Td Vaccines (2 - Td or Tdap) 09/01/2032 09/01/2022, 01/08/2015, 10/04/1997 Pneumococcal Vaccine: 50+ Years Completed 11/26/2015, 01/19/2014, 04/03/2011 Influenza Vaccine Completed 10/16/2025, , 09/01/2022, Additional history exists HIB Vaccines Aged Out [...] on patient's age to complete this topic Goals Goal Patient Goal Type Associated Problems [...] blood pressure task No John Ziegler, PharmD Patient has chronic kidney disease Care Plan Patient has chronic kidney disease No John Ziegler, PharmD Weekly blood pressure [...] chronic kidney disease No Senia Herrera RN Procedures Procedure Name Priority Date/Time Associated Diagnosis Comments POCT GLYCATED HEMOGLOBIN, TOTAL Routine 10/16/2025 3:29 PM EST Type 2 diabetes mellitus without complication, without long-term current use of insulin (HCC) POCT GLUCOSE Routine 10/16/2025 3:21 PM EST Type 2 diabetes mellitus without complication, without long-term current use of insulin ([facility]) LIPID PANEL, STANDARD Routine 08/30/2024 11:09 AM EDT Type 2 diabetes mellitus without complication, without long-term current use of insulin ([facility]/HCC) BI MAMMOGRAM SCREENING TOMOSYNTHESIS BILATERAL Routine 07/18/2024 [...] to Health Maintenance Results * (ABNORMAL) POCT Hgb A1c (10/16/2025 3:29 PM EST) Hemoglobin A1C 6.6(A) 4.0 - 5.7 % QC Media Lot # [id number] Lot# Expiration Date ,449,[id number] Blood 10/16/2025 3:29 PM EST us Nabeel Coombs MD POINT OF CARE TEST EN TER/EDIT ORDERABLES Final Result * (ABNORMAL) POCT Glucose (10/16/2025 3:21 PM EST) Glucose Blood, POC 205(A) 60 - 200 mg/dL QC Media Lot # [id number] Lot# Expiration Date Blood Capillary blood specimen / Unknown 10/16/2025 3:21 PM EST us Nabeel Coombs MD POINT OF CARE TEST EN TER/EDIT ORDERABLES Final Result * (ABNORMAL) Lipid Panel, Standard (08/30/2024 11:09 AM EDT) Triglycerides 172(H) <150 mg/dL [facility] Comment:Desirable Triglyceri de: less than 150 mg/dLBorderline High Triglyceride 150-199 mg/dLHigh Triglyceride: 200-499 mg/dLVery High Triglyceride: greater than or equal to 5OO mg/dL Cholesterol 124 <200 mg/dL [facility] Comment:Desirable Cholestero l: less than 200 mg/dLBorderline High Cholesterol: 200-239 mg/dLHigh Cholesterol: greater than 239 mg/dL LDL Cholesterol Calculated 47 <100 mg/dL [facility] Comment:Desirable LDL: less than 100 mg/dLNear Optimal/Above Optimal LDL: 110- 129 mg/dLBorderline High LDL: 130-159 mg/dLHigh LDL: 160-189 mg/dLVery High LDL: greater than or equal to 190 mg/dL HDL Cholesterol 43 >40 mg/dL [facility] Comment:Desirable HDL: great er than 40 mg/dL Note: This HDL assay may give artificially low results in patients with liver disease. Blood Venous blood specimen / Unknown 08/30/2024 11:09 AM EDT 08/30/2024 1:43 PM EDT us Nabeel Coombs MD LAB BLOOD ORDERABLES Final Result [facility] [address] [place], [place] [phone] * BI Mammogram Screening Tomosynthesis Bilateral (07/18/2024 1:55 PM EDT) Anatomical Region Laterality Modality Breast Bilateral Mammography 07/18/2024 1:55 PM EDT Narrative 08/10/2024 4:55 PM EDT [facility] [address] [place] [address] Mammography Report Signed Patient: Mirian Coulter MR#: [id number] : 1940 Acct:[id number] Age/Sex: 84 / F ADM Date: 07/18/24 Loc: HO.MAMMO Attending Dr: Nabeel Elizabeth MD Ordering Physician: Nabeel Elizabeth MD Resu lts: 2Benign Findings Date of Service: 07/18/24 Follow Up: 1 Year From [facility] Mammogram Procedure(s): MM tomosynthesis screening BI Accession Number(s): [id number] cc: Nabeel Elizabeth MD EXAMINATION: MM SCREENING [...] 08/10/24 1652 DD/ 1355 TD/TT: 07/18/24 1410 Senior Wind Turbine Technician: Procedure Note Donotuseinterpreter, Image - 08/10/2024 Shyam [facility] [address] [place], [place] [address] Mammography Report Signed Patient: Mirian Coulter MR#: [id number] : 1940Acct:[id number] Age/Sex: 84 / FADM Date: 07/18/24 Loc: HO.MAMMO Attending Dr: Nabeel Elizabeth MD Ordering Physician: Nabeel Elizabeth MDResu lts: 2Benign Findings Date of Service: 07/18/24Follow Up: 1 Year From Orig inal Mammogram Procedure(s): MM tomosynthesis screening BI Accession Number(s): [id number] cc: Nabeel Elizabeth MD EXAMINATION: MM SCREENING [...] Cristy Peralta MD 08/10/2024 04:52 PM EDT Dictated By: Cristy Peralta MD Signed By: <Electronically signed by Cristy Peralta MD in OV> 08/10/24 1652 DD/ 1355 TD/TT: 07/18/24 1410 Senior Wind Turbine Technician: Nabeel Coombs MD IMG BI PROCEDURES Fin al Result * ALBUMIN, RANDOM URINE W/CREATININE (04/06/2022 10:27 AM EDT) Microalbumin Urine 1.6 See Note: mg/dL [facility] Comment: Reference Range: Reference Range [...] LAB SYSTEM 04/06/2022 10:2 7 AM EDT Nabeel Coombs MD LAB URINE ORDERABLES Final Result [facility] [address] from Last 3 Months or Most Recently Relevant to Health Maintenance Additional Health Concerns Active Problems Noted Date [...] 10/16/2025 Patient has chronic kidney disease 10/16/2025 Insurance [facility] Member Subscriber Plan / Payer (Ef fective 2013-Present) Name:Mirian Coulter Relation to Subscriber:Self Name:Mirian Coulter Payer ID:[id number] ([facility]) Group ID:[id number] Type:Not on file Address: [address] [place] [id number] Advance Directives Documents on File Type Date Recorded Patient Transitions Manager Expl anation Advance Directives and Living Will 05/02/2024 Health Care Proxy 05/02/24 Care Teams Founder President And Ceo Relationship Specialty Start Date End Date Nabeel Aldana MD [address] [place] [id number] PCP - General Internal Medicine 07/10/14 Santi Arellano DPM [address] [place] [phone] Podiatry 02/01/25
== END 2025-10-18 16:01 | disposition home or self-care (01) ==
LOC: HO.MAMMO 16:00
PROVIDERS: PCP Internal Medicine; Visit Provider Internal Medicine
DX: Z12.31 Encounter for screening mammogram for malignant neoplasm of breast (principal)
CPT/HCPCS: 77063; 77067

== ENCOUNTER → 2025-10-18 16:15 | Outpatient (BNV) | payer OTHER, SELFPAY | PROVIDERS: PCP Internal Medicine; Visit Provider Internal Medicine | DX: Z12.31 Encounter for screening mammogram for malignant neoplasm of breast (principal) | CPT/HCPCS: 77063; 77067 ==